=== PATIENT | male | born 1940 | race Caucasian/White ===

== ENCOUNTER 2018-11-12 06:12 | Observation (INO) ==
[~2018-11-12 06:12] MED LIST: MORPHINE SULFATE 15 MG TABLET.SA PO PRN; ROPIVACAINE HCL/PF 100 MG, EPINEPHrine 0.2 MG, KETOROLAC TROMETHAMINE 30 MG in NORMAL S... IJ PRN; TRANEXAMIC ACID 1,000 MG in NORMAL SALINE 100 ML IV PRN; ceFAZolin SODIUM 1 GM VIAL IV PRN
[2018-11-12] MEDS: RINGER'S SOLUTION,LACTATED 1,000 ML IV PRN ×3 (07:06→10:19)
--- NOTE | 2018-11-12 07:35 | ANES ---
Anesthesia Pre Procedure Eval Vitals/Labs: Last Vital Signs Temp 36.7 C 11/12/18 06:26 Pulse 65 11/12/18 06:26 Resp 18 11/12/18 06:26 BP 128/69 11/12/18 06:26 Pulse Ox 96 11/12/18 06:26 HOME MEDICATIONS Aspirin [Aspirin EC] 81 mg PO DAILY 06/08/15 [Last Taken 10/29/18] [place]-3 Fatty Acids [Fish Oil] 500 mg PO BID 06/08/15 [Last Taken Unknown] Saw Pool Xtr/Zinc Picolin [Gnp Saw Pool 80 mg Capsule] 2 ea PO BID 06/08/15 [Last Taken 11/11/18] gabapentin 100 mg capsule 200 mg PO BID #360 cap 04/30/18 [Last Taken 11/11/18] losartan 100 mg tablet 100 mg PO DAILY #90 tab 06/13/18 [Last Taken 11/12/18] Allergies/Adverse Reactions: Allergies Allergy/AdvReac Type Severity Reaction Status Date / Time pregabalin [From Lyrica] Allergy Mild Hives Verified 11/12/18 06:27 Tetracyclines Allergy Mild Hives Verified 11/12/18 06:27 Sulfa (Sulfonamide Allergy rash Verified 11/12/18 06:27 Antibiotics) - Planned Procedure Planned Procedure: Left Total Knee Arthroplasty Medication List Reviewed:: Yes Allergies Verified: Yes Medical History (Updated 11/11/18 @ 09:11 by Dat Morgan MD) CVA (cerebral vascular accident) Onset Date: ~12/2014 HTN (hypertension) Onset Date: Unknown Knee pain, bilateral Onset Date: Unknown Malignant melanoma Onset Date: ~09/2017 Rt hand - Removal by Dr. Aguilar Wrist pain Onset Date: Unknown Bilateral Surgical History (Updated 01/28/18 @ 08:58 by Chayito Pratt) History of carpal tunnel release 06/24/15 Endoscopic left - Dr. Wong Hx of appendectomy 1985 Hx of colonoscopy 2014 WNL Family History (Updated 01/28/18 @ 09:14 by Chayito Partt) Father Kidney disease Mother CVA (cerebral vascular accident) Hypertension Sister Alive and well 5 sisters Son Alive and well 2 sons - Family Anesthesia History Family History:: no untoward family reactions to anesthesia, no familial bleeding tendencies, no family history of clotting disorders, no family history of premature - Airway/Neck/Teeth Within Normal Limits:: Yes Teeth Condition: intact Mallampatti Score: 4 Thyromental (T-M) distance: > 6 cm Mandibulo Hyoid distance: > 3 cm - Respiratory Respiratory Physical: lungs clear Smoking Status: Never smoker Discussed smoking cessation including day of surgery: No Sleep Apnea currently treated: No Sleep Apnea by current assessment: No Discussed Risks/Treatment of REANNA: No - Cardiovascular Tolerate Activity: Fair Heart Sounds: S1 & S2, Regular - Anesthesia Assessment and Plan ASA Class: PS, III Anesthesia Type Plan: Block - Bilateral ultrasound guided TAP blocks for postop analgesia, Spinal
--- NOTE | 2018-11-12 10:15 | OR ---
Operative Report - Dictated Report Narrative: Date: 11/12/2018 Preoperative diagnosis: Left Knee degenerative joint disease. Postoperative diagnosis: Left Knee degenerative joint disease. Procedure: Left Total knee arthroplasty. Surgeon: Julien Wong M.D. Lead Shipper: Alejandro Mcrae PA-C (provided and essential set of skilled, educated hands that assisted with transfer, positioning, prepping, draping, manipulation, retraction, placement of jigs, injection, insertion of implants, irrigation, closure wounds, and dressings all of which could not be performed by the available surgical crew) Anesthesia: Spinal with regional block and local periarticular joint injection. Complications: None Specimens: Bone. Estimated blood loss: Minimal. Tourniquet time: 120 Minutes at 325 millimeters of mercury. Retained implants: Depuy Attune size 7 left lugged cemented posterior stabilized femoral component. Size 7 fixed-bearing cemented tibial platform. 7 by 5 millimeter posterior stabilized cross-linked tibial insert. 41 millimeter medialized patella button. Indications: Mr. Hill is a 78-year-old gentleman who has a long-standing left knee pain and arthrosis. This patient was followed in my clinic for period of time with significant complaints of left knee pain consistent with arthritic changes. He had failed conservative measures including, but not limited to, activity modification, passage of time, medications, and other conservative measures. Patient wished to proceed with surgical treatment. The risks, benefits, and alternatives were discussed in clinic. The risks of , blood clots, bleeding, infection, nerve/tendon blood vessel/ injury, malposition of components, intraoperative fracture, postoperative limited range of motion, persistent pain, failure of components, and need for additional procedures. Patient wished to proceed consent was obtained after answering all questions. Procedure: After marking the correct extremity on the floor, the patient was taken to the operating room. A timeout was performed. IV antibiotics consisting of Ancef were administered prior to the procedure. A regional followed by spinal anesthetic was induced by anesthesia, per my request, on the operative table with all bony prominences well-padded. Cortez catheter was placed, and a bump was placed under the operative side buttock. SCDs and JANET hose were utilized on the nonoperative leg. A well-padded tourniquet was applied to the operative thigh. The operative leg was then pre-scrubbed with alcohol, prepped, and draped in a standard sterile fashion. After exsanguinating the extremity with an Esmarch bandage, the tourniquet was inflated. After marking out the anterior knee for standard incision centered over the patella, the skin was incised and dissected down to the joint retinaculum. The joint retinaculum was marked out as well as the horizontal axis of the patella, and a standard medial parapatellar arthrotomy was then made. The most proximal aspect of the quadriceps tendon and the patella tendon insertion were protected from release. A partial synovectomy was performed as well as a resection of the infrapatellar fat pad. The distal femoral fat pad proximal to the trochlea was also resected using cautery. The soft tissues were elevated off the medial aspect of the proximal tibia using a Tse elevator ensuring that we did not transect the medial collateral ligament. Upon initial evaluation range of motion was approximately 10 degrees to 110 degrees of flexion. There were signs of advanced arthrosis in the medial and patellofemoral greater than lateral joint spaces. There were large marginal osteophytes which were removed with a rongeur. The knee was hyperflexed and the patella was tucked laterally. Protecting the surrounding soft tissues with Homans, an entry drill was placed down the femoral canal using Whitesides line for guidance into the entry point. The intramedullary femoral alignment liza was utilized in order to cut the distal femur in 5 degrees of valgus resecting 11 millimeters of bone. Next the distal femur was sized to a size 7. A posterior referencing guide was utilized to place the distal femoral cutting block in 3 degrees of external rotation. This was pinned into place. The rotation was confirmed both visually and based on anatomic landmarks. The 4 in 1 cutting jig of the appropriate size was utilized in order to make all bony cuts. The angle wing was used to ensure no notching. Retractors were utilized in order to protect surrounding soft tissues. This cut did not result in any excessive notching. We then cut the box centered over the distal femur. This allowed for resection of the anterior and posterior cruciate ligaments. I then turned my attention to the preparation of the tibia. Using an extra medullary tibial alignment liza, 5 millimeters of bone was resected off the medial articular surface. This was made perpendicular to the mechanical axis of the joint with the alignment liza centered over the ankle mortise. The alignment liza was checked and was noted to be parallel to the mechanical axis, centered over the medial one third of the tibial tubercle, paralleling the anterior surface of the tibia. We then turned our attention to the remaining meniscus and soft tissues. These were removed while protecting the surrounding ligaments and soft tissues. The marginal osteophytes off the anterior, posterior, medial, lateral aspects of the femur and tibia were removed. The tibia was sized out to a size 7. Next the tibia was drilled and punched in an externally rotated position. The tibial component was slightly lateralized and the excess bone around the medial posterior aspect of the tibia was resected in order to assist with obtaining full extension. Next the trial femur and a series of tibial inserts were utilized in order to allow for full extension and maximal flexion. It was found that a 5 millimeter insert gave the best range of motion and stability at multiple flexion points as well as at full extension there was less than 2 mm of gapping both medially and laterally. There is minimal anterior translation with the knee at 90 degrees of flexion and no signs of being able to dislocate the knee. The patella was then prepared. The initial thickness was 26 millimeters. This was reamed down to 16 millimeters parallel to the anterior surface of the patella. It was sized out to a size 41 medialized patella button. This was then drilled and trialed. Without any medial restraint the patella tracked appropriately and did not sublux or dislocate. At this point, it was felt these were the appropriate sized implants, and all trials were removed. The standard periarticular joint injection consisting of ropivacaine, Toradol, and epinephrine were injected into the periarticular joint tissues. The bony surfaces were thoroughly irrigated with a pulsatile-suction saline irrigation device. A bone plug from the prior resected anterior chamfer cut was placed into the drill hole at the distal femur. The bony surfaces were then dried in preparation for placement of the implants. The cement was vacuum mixed per the mosaic worker's instructions. The cement was placed on the dry bony surfaces and posterior aspect of the implants. The implants were impacted into place, removing all extruded cement. At this point anesthesia administered tranexamic acid per protocol intravenously. The knee was placed in extension with axial loading with the trial insert while the cement cured. Once the cement cured, all remaining extruded cement was removed. The knee was placed through a range of motion with the trial insert to ensure appropriate range of m otion and stability. Final range of motion was approximately 0 to 120 degrees. The knee was again thoroughly irrigated with pulsatile saline lavage. The final polyethylene insert was then impacted into place ensuring no retained soft tissues. The remaining periarticular joint injection was injected. A medium Hemovac drain was placed exiting superior laterally. The knee was then placed over a triangle and the arthrotomy was closed with interrupted #1 Vicryl after thoroughly irrigating the joint. The deep and subcutaneous tissues were closed with interrupted 0 and 3-0 Vicryl respectively. Skin was closed with a running subcutaneous 3-0 Monocryl and Prineo Dermabond dressing. 4 x 4's, Sof-Rol, and a full leg Jordan wrap were applied. All sponge, needle, blade, and instrument counts were correct prior to closing the wounds. Postoperative condition: The patient was awoken and transferred to the postanesthesia care unit in stable condition. Plan is to be admitted to the inpatient medical/surgical floor postoperatively for 24 hours of IV antibiotics, physical therapy, occupational therapy, and medical comanagement. Patient will be weightbearing as tolerated with range of motion as tolerated. DVT prophylaxis will be with SCDs, JANET hose, and pharmacological anticoagulation. Anticipated hospital stay is approximately 1-3 days.
[2018-11-12] MEDS ORDERED: diphenhydrAMINE HCL 50 MG/ML VIAL IV PRN (10:16)
[2018-11-12] MEDS ORDERED: ZOLPIDEM TARTRATE 5 MG TABLET PO PRN (10:16)
[2018-11-12] MEDS ORDERED: ONDANSETRON HCL/PF 2 MG/ML VIAL IV PRN (10:16)
[2018-11-12] MEDS ORDERED: ACETAMINOPHEN 500 MG TABLET PO PRN (10:16)
[2018-11-12] MEDS ORDERED: MAG HYDROX/ALUMINUM HYD/SIMETH 30 ML UDC PO PRN (10:16)
[2018-11-12] MEDS ORDERED: DEXTROSE 5%-LACTATED RINGERS 1,000 ML IV PRN (10:16)
[2018-11-12] MEDS ORDERED: MAGNESIUM HYDROXIDE 30 ML UDC PO PRN (10:16)
[2018-11-12] MEDS ORDERED: MORPHINE SULFATE 2 MG/ML DISP.SYRIN IV PRN (10:16)
--- NOTE | 2018-11-12 10:35 | ANES ---
Post Anesthesia Discharge - Transfer of Care Transfer of Care handoff given to nurse: Yes - Discharge from PACU Discharge from PACU when meets criteria: Yes - Discharge to ASU Discharge to ASU-no complications/pt stable: Yes
--- NOTE | 2018-11-12 10:39 | ANES ---
Anesthesia Procedure Note Procedure Note: ANESTHESIA PROCEDURE NOTE Date of Procedure: 11/12/2018. Time of procedure: 0740. Performed by: Norris Jolley CRNA Wheelchair Van Driver: None. Preprocedure diagnosis: Left knee degenerative joint disease. Post procedure diagnosis: Same. Procedure: Left ultrasound guided adductor canal block for postoperative analgesia. Indications: The patient is a 78-year-old male, requesting left ultrasound- guided abductor canal block for postoperative analgesia related to left total knee arthroplasty. Findings: See below. Details of the procedure: The tissue over the intended target site was cleansed with ChloraPrepand draped in a sterile fashion. 2 ml Lidocaine 1 % was infiltrated to the skin and subcutaneous tissue at the intended target site. Under sterile technique and ultrasound guidance a 18-gauge Tuohy needle was inserted through the left sartorius muscle to the saphenous nerve just anterior and medial to the superficial femoral artery and vein. 15 mL's of 0.5% bupivacaine was injected after negative aspiration for blood. Needle tip and spread of local anesthetic surrounding the saphenous nerve was observed throughout the injection with real time ultrasound visualization. The Tuohy needle was then removed intact. No complications were noted. The images were retained in the hospital medical database. EBL: Minimal. Fluids: N/A. Specimen: N/A. Post procedure condition: The patient tolerated the procedure well. No complications were noted. Thank you for this consultation. Norris Jolley CRNA
[2018-11-12] MEDS: KETOROLAC TROMETHAMINE 15 MG/ML VIAL IV SCH ×3 (11:11→22:44)
[2018-11-12] MEDS: ceFAZolin SODIUM 1 GM in DEXTROSE 5 % IN WATER 100 ML IV SCH ×4 (12:25→18:04)
--- NOTE | 2018-11-12 14:26 | ANES ---
Post Anesthesia Assessment - Vital Signs Vitals: Last Vital Signs Temp 36.2 C 11/12/18 10:50 Pulse 91 11/12/18 10:50 Resp 16 11/12/18 10:50 BP 139/64 11/12/18 10:50 Pulse Ox 95 11/12/18 10:50 Airway Patency: Normal - Mental Status Level Of Consciousness: Awake - Pain Level Pain Score: 0 - N/V Assessment Nausea/Vomiting Presence: None Dehydration:: No
[2018-11-12] MEDS: MORPHINE SULFATE 15 MG TABLET.SA PO SCH (21:45)
[2018-11-12] MEDS: OMEGA-3 FATTY ACIDS 1 CAP CAPSULE PO SCH (21:45)
[2018-11-12] MEDS: GABAPENTIN 100 MG CAPSULE PO SCH (21:45)
[2018-11-12] MEDS: SENNOSIDES/DOCUSATE SODIUM 1 TAB TABLET PO SCH (21:46)
[2018-11-13] MEDS: ceFAZolin SODIUM 1 GM in DEXTROSE 5 % IN WATER 100 ML IV SCH ×2 (00:42)
[2018-11-13] MEDS: oxyCODONE HCL/ACETAMINOPHEN 1 TAB TABLET PO PRN ×3 (04:00→14:50)
[2018-11-13] MEDS: KETOROLAC TROMETHAMINE 15 MG/ML VIAL IV SCH ×4 (04:02→23:29)
[2018-11-13 05:31] LABS: Anion Gap 8.7 mmol/L (6.8-13.8); BUN/Creatinine Ratio 10.1 (9.0-21.6); Calcium * 8.8 mg/dL (7.9-10.9); Carbon Dioxide 29.8 mmol/L (24-32.6); Estimated Creat Clear 41.2; Potassium 4.5 mmol/L (3.4-4.6)
[2018-11-13 05:35] LABS: Hematocrit 35.5 % (42.0-52.0); Hemoglobin 11.4 gm/dL (13.5-18.0); Mean Cell Volume 94.2 fl (78-100); Mean Corpuscular Hemoglobin 30.2 pg (27-31); Mean Corpuscular Hgb Conc 32.1 g/dl (32-36); Mean Platelet Volume 9.8 fl (8-11.3); Platelet Count 143 K/mm3 (150-450); Red Blood Count 3.77 M/mm3 (4.7-6.0); Red Cell Distribution Width 12.6 % (11.5-14.0); White Blood Count 6.4 K/mm3 (4.0-10.5)
[2018-11-13] MEDS: LOSARTAN POTASSIUM 50 MG TABLET PO SCH (08:41)
[2018-11-13] MEDS: MORPHINE SULFATE 15 MG TABLET.SA PO SCH ×2 (08:41→21:09)
[2018-11-13] MEDS: GABAPENTIN 100 MG CAPSULE PO SCH ×2 (08:41→21:10)
[2018-11-13] MEDS: OMEGA-3 FATTY ACIDS 1 CAP CAPSULE PO SCH ×2 (08:41→21:10)
[2018-11-13] MEDS: ENOXAPARIN SODIUM 40 MG/0.4 ML SYRG SC SCH (09:44)
--- NOTE | 2018-11-13 16:26 | PN ---
Subjective - Date and Time Seen Date: 11/13/18 Time: 08:00 Subjective Narrative: Subjective: Reports mild pain and difficulty sleeping last night. Was able to get up to the chair with therapy. Pain is well-controlled. Voiding without any complications. Tolerating by mouth intake. Denies any nausea or vomiting. Denies calf pain. Has some low back pain that responded to medications Physical exam: Alert and oriented to person, place and time Left lower extremity: Palpable dorsalis pedis pulse. Sensation grossly intact to light touch. Dressings clean and dry. Able to flex and extend ankle and toes. No excessive drainage. Calf and thigh are soft and nontender. Assessment: Postop day 1 status post left total knee arthroplasty. Plan: Due to the need for pain control, post-operative limited mobility, protection of the surgical site and joint, monitoring of the wound, and the management of chronic medical conditions, he requires continued care. Continue with physical and occupational therapy weightbearing as tolerated. Continue with anticoagulat ion. 24 hours postoperative prophylactic antibiotics. Pain control with goal to rely on oral medications. Continue bowel regimen. Will need 6 weeks with walker or assitive device to protect joint while ambulating during the recovery process. Discharge planning -he is being evaluated for treatment at the [facility] with skilled therapy in order to provide for additional therapy prior to returning home. Discontinue drain and Cortez catheter. Objective - Vitals Vitals: Last Vital Signs Temp 37.0 C 11/13/18 15:18 Pulse 80 11/13/18 15:18 Resp 16 11/13/18 15:18 BP 138/70 11/13/18 15:18 Pulse Ox 97 11/13/18 15:18 - Abnormal Lab Findings Abnormal Lab Findings: Abnormal Lab Results 11/13/18 11/13/18 Range/Units 05:05 05:05 RBC 3.77 L (4.7-6.0) M/mm3 Hgb 11.4 L (13.5-18.0) gm/dL Hct 35.5 L (42.0-52.0) % Plt Count 143 L (150-450) K/mm3 Creatinine 1.48 H (0.4-1.4) mg/dL Est GFR (Non-Af Amer) 49 L (60-130) mL/min Random Glucose 128 H (70-110) mg/dL Cauti Physician Documentation - Urinary Catheter Management Urethral (Cortez) Date of Insertion: 11/12/18 Time of Insertion: 08:10 Date of Removal: 11/13/18 Time of Removal: 03:30 Assessment/Plan - Problems/Diagnosis (1) Status post total left knee replacement Problem: Acute (2) Acute blood loss anemia Problem: Acute (3) Low back pain Problem: Chronic Qualifiers: Chronicity: chronic Back pain laterality: midline (4) Right bundle branch block (RBBB) Problem: Chronic (5) Degenerative disc disease, lumbar Problem: Chronic (6) Hypertension Problem: Chronic Qualifiers: (7) Hyperlipidemia Problem: Chronic
[2018-11-13] MEDS: SENNOSIDES/DOCUSATE SODIUM 1 TAB TABLET PO SCH (21:10)
[2018-11-14] MEDS: KETOROLAC TROMETHAMINE 15 MG/ML VIAL IV SCH (04:36)
[2018-11-14] MEDS: LOSARTAN POTASSIUM 50 MG TABLET PO SCH (08:32)
[2018-11-14] MEDS: ENOXAPARIN SODIUM 40 MG/0.4 ML SYRG SC SCH (08:32)
[2018-11-14] MEDS: GABAPENTIN 100 MG CAPSULE PO SCH (08:32)
[2018-11-14] MEDS: OMEGA-3 FATTY ACIDS 1 CAP CAPSULE PO SCH (08:32)
[2018-11-14] MEDS: MORPHINE SULFATE 15 MG TABLET.SA PO SCH (08:35)
--- NOTE | 2018-11-14 08:54 | DS ---
(1) Status post total left knee replacement Problem: Acute (2) Acute blood loss anemia Problem: Acute (3) Hyperlipidemia Problem: Chronic (4) Hypertension Problem: Chronic Qualifiers: Description of Stay: Mr. Landa was admitted to the floor after undergoing left total knee arthroplasty. Tolerated this well. Was admitted to the floor postoperatively for 24 hours of IV antibiotics, pain control, medical comanagement, and occupational and physical therapy. OT and PT were consulted to assist with activities of daily living and ambulation. Was made weightbearing as tolerated with range of motion as tolerated. Pain was initially controlled with IV regimen. This was transitioned to oral once tolerating a by mouth intake. Was resumed on home diet and medications. Had a Cortez catheter inserted and the operating room which was discontinued on postoperative day 1. A drain was placed intraoperatively into the knee which was discontinued on postoperative day 1. Lovenox SCD and JANET hose were utilized for DVT prophylaxis. Vital signs remained stable to the hospital course. Serial labs were obtained which showed a final hemoglobin of 11.4 grams. BMP was reviewed and was stable. Physical examination throughout the hospital course showed an extremity that had sensation that was intact to light touch, palpable pulses, a benign wound, motor intact to the toes, ankle, and knee. Knee range of motion was approximately 5 degrees to 60 degrees. Once an oral pain regimen was tolerated and physical therapy goals were met, it was felt that they were stable for discharge to home. Instructions: Continue with weightbearing as tolerated and range of motion as tolerated. It is OK to shower on the wound if it is not draining. If you note any drainage or for comfort you can cover with dry gauze and tape. Change every 2-3 days as needed. Continue with physical therapy. Resume home diet. Report any fever over 101.5 Fahrenheit, uncontrolled pain, increased drainage, foul odor of drainage, new or increased calf pain or shortness of breath, or any other significant complaints. A 325mg dialy aspirin will be started after finishing anticoagulation if not allergic. Continue with JANET hose on the operative extremity until instructed otherwise. No driving until instructed otherwise. Follow up in approximately 10-14 days. Procedures Performed: see notes below List Procedures: Left total knee arthroplasty Results and Findings: Lab Pending Results 11/13/18 05:05: WBC 6.4, RBC 3.77 L, Hgb 11.4 L, Hct 35.5 L, MCV 94.2, MCH 30.2, MCHC 32.1, RDW 12.6, Plt Count 143 L, MPV 9.8 11/13/18 05:05: Sodium 140, Plasma Sodium 140, Potassium 4.5, Chloride 106, Carbon Dioxide 29.8, Anion Gap 8.7, BUN 15, Creatinine 1.48 H, Est GFR (Non-Af Amer) 49 L, BUN/Creatinine Ratio 10.1, Random Glucose 128 H, Calcium 8.8 Discharge Location: [facility] Disposition: SNF Condition: Good Discharge Activity: Activity as tolerated, Weight bearing - With walker Discharge Diet: Low salt, Low fat/chol Referrals: Dat Morgan MD [Primary Care Provider] - Additional Patient Instructions (free text): Discharge to [facility] for PT and OT to evaluate and treat. Follow up Orthopedic appt. Dr Wong on December 04 at 10:30am. Follow up with Dr Morgan in office, care center to make the appt. Iceman as tolerated to knee when sedentary, at least 4 hours a day, no maximum time CPM 0-70 degrees flexion, progress as tolerated up to 110 degrees increasing 10 degrees daily as tolerate, use 3 times a day for 1-2 hours at a time, may use for longer periods or more often pending the patients comfort. Prescriptions (Any new or edited meds): Enoxaparin Sodium [Lovenox] 40 mg SC Q24H #7 disp.syrin Morphine Sulfate [Ms Contin] 15 mg PO Q12H #14 tablet.sa oxyCODONE HCL/ACETAMINOPHEN [Percocet 5 MG/325 MG] 2 tab PO Q4H PRN #60 tab PRN Reason: Moderate Pain (Pain Scale 4-6) Sennosides/Docusate Sodium [Senokot-S] 2 tab PO HS #30 tab Complete Home Medications List: Complete Home Medication List: Aspirin [Aspirin EC] 81 mg PO DAILY 06/08/15 [place]-3 Fatty Acids [Fish Oil] 500 mg PO BID 06/08/15 Saw Ely Xtr/Zinc Picolin [Gnp Saw [place]ly 80 mg Capsule] 2 ea PO BID 06/08/15 gabapentin 100 mg capsule 200 mg PO BID #360 cap 11/14/18 losartan 100 mg tablet 100 mg PO DAILY #90 tab 06/13/18 Enoxaparin Sodium [Lovenox] 40 mg SC Q24H #7 disp.syrin 11/14/18 Morphine Sulfate [Ms Contin] 15 mg PO Q12H #14 tablet.sa 11/14/18 Sennosides/Docusate Sodium [Senokot-S] 2 tab PO HS #30 tab 11/14/18 oxyCODONE HCL/ACETAMINOPHEN [Percocet 5 MG/325 MG] 2 tab PO Q4H PRN #60 tab 11/14/18
--- NOTE | 2018-11-14 12:13 | CONS ---
[facility] - General Date of Service: 11/14/18 Source: patient, family - History of Present Illness Initial Comments: 78-year-old male who I am asked to consult on for gross hematuria and urinary retention after knee surgery. Patient underwent a left knee replacement 2 days ago. Catheter was removed the next day. No reported troubles at first and he was able to urinate. However went into urinary retention overnight. He is now just dripping blood. States he has to pee but cannot. Only dripping a small amount. Bladder scan was 150 mL. He reports no prior urological surgery or medications. He does report progressive troubles urinating with urgency, incontinence and nocturia. Family history: no reported family history of urological problems Social history non-smoker Timing/Duration: 24 hours Severity: moderate Allergies/Adverse Reactions: Allergies pregabalin [From Lyrica] Allergy (Mild, Verified 11/12/18 13:13) Hives Tetracyclines Allergy (Mild, Verified 11/12/18 13:13) Hives Sulfa (Sulfonamide Antibiotics) Allergy (Verified 11/12/18 13:13) rash Home Medications: Home Medications Medication Instructions Recorded Last Taken Aspirin [Aspirin EC] 81 mg PO DAILY 06/08/15 10/29/18 [place]-3 Fatty Acids [Fish Oil] 500 mg PO BID 06/08/15 Unknown [place] Xtr/Zinc Picolin [Gnp 2 ea PO BID 06/08/15 11/11/18 [place] 80 mg Capsule] gabapentin 100 mg capsule 200 mg PO BID #360 cap 04/30/18 11/11/18 losartan 100 mg tablet 100 mg PO DAILY #90 tab 06/13/18 11/12/18 Enoxaparin Sodium [Lovenox] 40 mg SC Q24H #7 disp.syrin 11/14/18 Unknown Morphine Sulfate [Ms Contin] 15 mg PO Q12H #14 tablet.sa 11/14/18 Unknown Sennosides/Docusate Sodium 2 tab PO HS #30 tab 11/14/18 Unknown [Senokot-S] oxyCODONE HCL/ACETAMINOPHEN 2 tab PO Q4H PRN #60 tab 11/14/18 Unknown [Percocet 5 MG/325 MG] Procedures Release Median Nerve, Percutaneous Endoscopic Approach (06/24/15) Appendectomy in 1984 L knee replacement 2 days ago Medications - Medications Current Medications: Current Medications Acetaminophen (Tylenol) 1,000 mg PO Q6H PRN PRN Reason: Mild pain (pain scale 1-3) Stop: 12/12/18 10:17 Last Admin: 11/14/18 07:37 Dose: 1,000 mg Documented by: Enoxaparin Sodium (Lovenox) 40 mg SC Q24H [facility] Stop: 12/13/18 09:17 Last Admin: 11/14/18 08:32 Dose: 40 mg Documented by: Gabapentin (Neurontin) 200 mg PO BID [facility] Stop: 12/12/18 21:01 Last Admin: 11/14/18 08:32 Dose: 200 mg Documented by: Dextrose/Lactated Ringer's (Dextrose 5%-Lr) 1,000 mls @ 125 mls/hr IV .Q8H PRN PRN Reason: HYDRATION Stop: 12/12/18 10:17 Last Admin: 11/12/18 11:07 Dose: 125 mls/hr Documented by: Losartan Potassium (Cozaar) 100 mg PO DAILY [facility] Stop: 12/13/18 09:01 Last Admin: 11/14/18 08:32 Dose: 100 mg Documented by: Magnesium Hydroxide (Milk Of Magnesia) 30 ml PO DAILY PRN PRN Reason: Constipation Stop: 12/12/18 10:17 Last Admin: 11/13/18 11:43 Dose: 30 ml Documented by: Morphine Sulfate (Ms Contin) 15 mg PO Q12H [facility] Stop: 12/12/18 21:01 Last Admin: 11/14/18 08:35 Dose: 15 mg Documented by: Non-Formulary Medication ([place] Xtr/Zinc Picolin [Gnp [place] 80 Mg Capsule]) 2 ea PO BID [facility] Stop: 12/12/18 21:01 Last Admin: 11/14/18 08:32 Dose: Not Given Documented by: Iqatj-6-Bobk Ethyl Esters ([place]-3 1000 Mg) 1 cap PO BID [facility] Stop: 12/12/18 21:01 Last Admin: 11/14/18 08:32 Dose: 1 cap Documented by: Oxycodone/Acetaminophen (Percocet 5 Mg/325 Mg) 2 tab PO Q4H PRN PRN Reason: Moderate Pain (pain scale 4-6) Stop: 12/12/18 10:17 Last Admin: 11/13/18 14:50 Dose: 2 tab Documented by: Senna/Docusate Sodium (Senokot-S) 2 tab PO HS [facility] Stop: 12/12/18 21:01 Last Admin: 11/13/18 21:10 Dose: 2 tab Documented by: Zolpidem Tartrate (Ambien) 5 mg PO HS PRN PRN Reason: Insomnia Stop: 12/12/18 10:17 Last Admin: 11/13/18 21:09 Dose: 5 mg Documented by: Review of Systems - Review of Systems Generalized/Overall Review: Present: No Symptoms Reported EENTM: Present: No Symptoms Reported Respiratory: Present: No Symptoms Reported Cardiac: Present: No Symptoms Reported Abdominal: Present: No Symptoms Reported Genitourinary: Present: Retention, Hematuria Musculoskeletal: Present: Joint Pain Neurological: Present: No Symptoms Reported Skin: Present: No Symptoms Reported Endocrine: Present: No Symptoms Reported Physical Examination - Exam Vital Signs: Vital Signs - Last Taken Temp 98.6 F 11/14/18 10:03 Pulse 70 11/14/18 10:03 Resp 16 11/14/18 10:03 BP 143/66 11/14/18 10:03 Pulse Ox 97 11/14/18 10:03 O2 Oxygen Delivery Method Room Air Constitutional: Present: Alert, Oriented x3 ENT Exam: Present: normal ENT inspection Neck: Present: non-tender, full range of motion Respiratory: Present: normal breath sounds Cardiovascular/Chest: Present: regular rate, rhythm Abdomen: Present: soft, nontender /Rectal: Present: External genitalia normal, Other - dripping blood from penis while sitting on the toilet Extremity: Present: normal range of motion Skin Exam: Present: normal color, warm/dry Neurologic: Present: no motor/sensory deficits Appearance: Present: appropriate appearance Eye contact: Present: cooperative, good eye contact Thoughts: Present: normal thought pattern - Results and Findings: Narrative: Patient has urinary retention and gross hematuria following catheter removal yesterday. 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 I recommend 18 Vietnamese coud catheter placement and leave the catheter is indwelling. I will start him on Flomax and finasteride. I will see him back next week and see how he is doing and do a fill and pull assuming bleeding is stopped. Please call if he has troubles with placing catheter or catheter plugging. I would like him to discharge with both Flomax and finasteride
[2018-11-14] MEDS ORDERED: FINASTERIDE 5 MG TABLET PO SCH (12:15)
[2018-11-14 14:15] VITALS: BP 148/65
[2018-11-14] MEDS ORDERED: TAMSULOSIN HCL 0.4 MG CAP.SR.24H PO SCH (18:00)
== END 2018-11-14 14:00 ==
LOC: INTOOBSV 06:12 → MS 06:12 → EDSTATUS 08:00
PROVIDERS: ADMIT Orthopaedic Surgery; ATTEND Orthopaedic Surgery
CPT/HCPCS: 36415; 73560; 80048; 85027; 97110; 97116; 97161; 97165; 97535; G0378

== ENCOUNTER 2019-01-21 08:00 | Observation (INO) ==
[~2019-01-21 08:00] MED LIST changes: +VANCOMYCIN HCL 1 GM in DEXTROSE 5 % IN WATER 250 ML IV PRN
[2019-01-21] MEDS: RINGER'S SOLUTION,LACTATED 1,000 ML IV PRN ×2 (09:22→12:55)
--- NOTE | 2019-01-21 09:44 | ANES ---
Anesthesia Pre Procedure Eval Vitals/Labs: Last Vital Signs Temp 36.4 C 01/21/19 09:06 Pulse 66 01/21/19 09:06 Resp 18 01/21/19 09:06 BP 114/57 01/21/19 09:06 Pulse Ox 99 01/21/19 09:06 HOME MEDICATIONS Aspirin [Aspirin EC] 81 mg PO DAILY 06/08/15 [Last Taken 01/16/19] [place]-3 Fatty Acids [Fish Oil] 500 mg PO DAILY 06/08/15 [Last Taken 01/20/19] Acetaminophen [Tylenol] 500 mg PO TID PRN #30 tab 11/14/18 [Last Taken Unknown] Finasteride [Proscar] 5 mg PO DAILY #30 tab 11/14/18 [Last Taken 01/20/19] Tamsulosin HCl [Flomax] 0.4 mg PO DAILY #30 cap 11/14/18 [Last Taken 01/20/19] gabapentin 100 mg capsule 200 mg PO BID #360 cap 01/02/19 [Last Taken 01/20/19] losartan 100 mg tablet 100 mg PO DAILY #90 tab 01/02/19 [Last Taken 01/21/19] Allergies/Adverse Reactions: Allergies Allergy/AdvReac Type Severity Reaction Status Date / Time pregabalin [From Lyrica] Allergy Mild Hives Verified 01/19/19 11:35 Sulfa (Sulfonamide Allergy Mild rash Verified 01/21/19 09:10 Antibiotics) Tetracyclines Allergy Mild Hives Verified 01/19/19 11:35 - Planned Procedure Planned Procedure: Right Total Knee Arthroplasty Medication List Reviewed:: Yes Allergies Verified: Yes Medical History (Updated 01/21/19 @ 09:11 by Lou Robin, MICHELLE) Enlarged prostate CVA (cerebral vascular accident) Onset Date: ~12/2014 Cellulitis Onset Date: 11/2018 back HTN (hypertension) Onset Date: Unknown Knee pain, bilateral Onset Date: Unknown Malignant melanoma Onset Date: ~09/2017 Rt hand - Removal by Dr. Aguilar Wrist pain Onset Date: Unknown Bilateral Surgical History (Updated 12/04/18 @ 10:42 by Cody Vasques, MICHELLE) History of total left knee replacement Onset Date: 11/12/18 Dr. Wong History of carpal tunnel release 06/24/15 Endoscopic left - Dr. Wong Hx of appendectomy 1985 Hx of colonoscopy 2015 WNL Family History (Updated 01/28/18 @ 09:14 by Chayito Pratt) Father Kidney disease Mother CVA (cerebral vascular accident) Hypertension Sister Alive and well 5 sisters Son Alive and well 2 sons - Family Anesthesia History Family History:: no untoward family reactions to anesthesia, no familial bleeding tendencies, no family history of clotting disorders, no family history of premature - Airway/Neck/Teeth Within Normal Limits:: Yes Teeth Condition: intact Neck Exam: full range of motion Mallampatti Score: 3 Thyromental (T-M) distance: > 6 cm Mandibulo Hyoid distance: > 3 cm - Respiratory Respiratory Physical: lungs clear Smoking Status: Former smoker - quit 30+years Sleep Apnea currently treated: No Sleep Apnea by current assessment: No - Cardiovascular Cardiac History: CVA/stroke, hypertension Tolerate Activity: Fair Heart Sounds: S1 & S2, Regular - Anesthesia Assessment and Plan ASA Class: PS, III Anesthesia Type Plan: Block - adductor canal block for post op pain relief, Spinal
[2019-01-21] MEDS ORDERED: ONDANSETRON HCL/PF 2 MG/ML VIAL IV PRN (12:42)
[2019-01-21] MEDS ORDERED: ACETAMINOPHEN 500 MG TABLET PO PRN (12:42)
[2019-01-21] MEDS ORDERED: diphenhydrAMINE HCL 50 MG/ML VIAL IV PRN (12:42)
[2019-01-21] MEDS ORDERED: DEXTROSE 5%-LACTATED RINGERS 1,000 ML IV PRN (12:42)
[2019-01-21] MEDS ORDERED: MAGNESIUM HYDROXIDE 30 ML UDC PO PRN (12:42)
[2019-01-21] MEDS ORDERED: MAG HYDROX/ALUMINUM HYD/SIMETH 30 ML UDC PO PRN (12:42)
[2019-01-21] MEDS ORDERED: ZOLPIDEM TARTRATE 5 MG TABLET PO PRN (12:42)
[2019-01-21] MEDS ORDERED: MORPHINE SULFATE 4 MG/ML SYRG IV PRN (12:42)
--- NOTE | 2019-01-21 12:50 | OR ---
Operative Report - Dictated Report Narrative: Date: 01/21/2019 Preoperative diagnosis: Right knee degenerative joint disease. Postoperative diagnosis: Right knee degenerative joint disease. Procedure: Right total knee arthroplasty. Surgeon: Julien Wong M.D. Clerical Administrator: Alejandro Mcrae PA-C (provided and essential set of skilled, educated hands that assisted with transfer, positioning, prepping, draping, manipulation, retraction, placement of jigs, injection, insertion of implants, irrigation, closure wounds, and dressings all of which could not be performed by the available surgical crew) Anesthesia: Spinal with regional block and local periarticular joint injection. Complications: None Specimens: Bone. Estimated blood loss: Minimal. Tourniquet time: 105 Minutes at 325 millimeters of mercury. Retained implants: Depuy Attune size 8 right lugged cemented posterior stabilized femoral component. Size 8 fixed-bearing cemented tibial platform. 8 by 5 millimeter posterior stabilized cross-linked tibial insert. 41 millimeter medialized patella button. Indications: Mr. Hill is a 78-year-old gentleman who has had long-standing right knee pain and arthrosis. This patient was followed in my clinic for period of time with significant complaints of right knee pain consistent with arthritic changes. He had failed conservative measures including, but not limited to, activity modification, passage of time, medications, and other conservative measures. Patient wished to proceed with surgical treatment. The risks, benefits, and alternatives were discussed in clinic. The risks of , blood clots, bleeding, infection, nerve/tendon blood vessel/ injury, malposition of components, intraoperative fracture, postoperative limited range of motion, persistent pain, failure of components, and need for additional procedures. Patient wished to proceed consent was obtained after answering all questions. Procedure: After marking the correct extremity on the floor, the patient was taken to the operating room. A timeout was performed. IV antibiotics consisting of Ancef were administered prior to the procedure. A regional followed by spinal anesthetic was induced by anesthesia, per my request, on the operative table with all bony prominences well-padded. Cortez catheter was placed, and a bump was placed under the operative side buttock. SCDs and JANET hose were utilized on the nonoperative leg. A well-padded tourniquet was applied to the operative thigh. The operative leg was then pre-scrubbed with alcohol, prepped, and draped in a standard sterile fashion. After exsanguinating the extremity with an Esmarch bandage, the tourniquet was inflated. After marking out the anterior knee for standard incision centered over the patella, the skin was incised and dissected down to the joint retinaculum. The joint retinaculum was marked out as well as the horizontal axis of the patella, and a standard medial parapatellar arthrotomy was then made. The most proximal aspect of the quadriceps tendon and the patella tendon insertion were protected from release. A partial synovectomy was performed as well as a resection of the infrapatellar fat pad. The distal femoral fat pad proximal to the trochlea was also resected using cautery. The soft tissues were elevated off the medial aspect of the proximal tibia using a Tse elevator ensuring that we did not transect the medial collateral ligament. Upon initial evaluation range of motion was approximately 10 degrees to 100 degrees of flexion. There were signs of advanced arthrosis in the medial, lateral, and patellofemoral joint spaces. There were large marginal osteophytes which were removed with a rongeur. The knee was hyperflexed and the patella was tucked laterally. Protecting the surrounding soft tissues with Homans, an entry drill was placed down the femoral canal using Whitesides line for guidance into the entry point. The intramedullary femoral alignment liza was utilized in order to cut the distal femur in 5 degrees of valgus resecting 11 millimeters of bone. Next the distal femur was sized to a size 8. A posterior referencing guide was utilized to place the distal femoral cutting block in 3 degrees of external rotation. This was pinned into place. The rotation was confirmed both visually and based on anatomic landmarks. The 4 in 1 cutting jig of the appropriate size was utilized in order to make all bony cuts. The angle wing was used to ensure no notching. Retractors were utilized in order to protect surrounding soft tissues. This cut did not result in any excessive notching. We then cut the box centered over the distal femur. This allowed for resection of the anterior and posterior cruciate ligaments. I then turned my attention to the preparation of the tibia. Using an extra medullary tibial alignment liza, 5 millimeters of bone was resected off the medial articular surface. This was made perpendicular to the mechanical axis of the joint with the alignment liza centered over the ankle mortise. The alignment liza was checked and was noted to be parallel to the mechanical axis, centered over the medial one third of the tibial tubercle, paralleling the anterior surface of the tibia. We then turned our attention to the remaining meniscus and soft tissues. These were removed while protecting the surrounding ligaments and soft tissues. The marginal osteophytes off the anterior, posterior, medial, lateral aspects of the femur and tibia were removed. The tibia was sized out to a size 8. Next the tibia was drilled and punched in an externally rotated position. Next the trial femur and a series of tibial inserts were utilized in order to allow for full extension and maximal flexion. It was found that a 5 millimeter insert gave the best range of motion and stability at multiple flexion points as well as at full extension there was less than 2 mm of gapping both medially and laterally. There is minimal anterior translation with the knee at 90 degrees of flexion and no signs of being able to dislocate the knee. The patella was then prepared. The initial thickness was 27 millimeters. This was reamed down to 17 millimeters parallel to the anterior surface of the patella. It was sized out to a size 41 medialized patella button. This was then drilled and trialed. Without any medial restraint the patella tracked appropriately and did not sublux or dislocate. At this point, it was felt these were the appropriate sized implants, and all trials were removed. The standard periarticular joint injection consisting of ropivacaine, Toradol, and epinephrine were injected into the periarticular joint tissues. The bony surfaces were thoroughly irrigated with a pulsatile-suction saline irrigation device. A bone plug from the prior resected anterior chamfer cut was placed into the drill hole at the distal femur. The bony surfaces were then dried in preparation for placement of the implants. The cement was vacuum mixed per the radio frequency design engineer's instructions. The cement was placed on the dry bony surfaces and posterior aspect of the implants. The implants were impacted into place, removing all extruded cement. At this point anesthesia administered tranexamic acid per protocol intravenously. The knee was placed in extension with axial loading with the trial insert while the cement cured. Once the cement cured, all remaining extruded cement was removed. The knee was placed through a range of motion with the trial insert to ensure appropriate range of motion and stability. Final range of motion was approximately 0 to 120 degrees. The knee was again thoroughly irrigated with pulsatile saline lavage. The final polyethylene insert was then impacted into place ensuring no retained soft tissues. The remaining periarticular joint injection was injected. A medium Hemovac drain was placed exiting superior laterally. The knee was then placed over a triangle and the arthrotomy was closed with interrupted #1 Vicryl after thoroughly irrigating the joint. The deep and subcutaneous tissues were closed with interrupted 0 and 3-0 Vicryl respectively. Skin was closed with a running subcutaneous 3-0 Monocryl and Prineo Dermabond dressing. 4 x 4's, Sof-Rol, and a full leg Jordan wrap were applied. All sponge, needle, blade, and instrument counts were correct prior to closing the wounds. Postoperative condition: The patient was awoken and transferred to the postanesthesia care unit in stable condition. Plan is to be admitted to the inpatient medical/surgical floor postoperatively for 24 hours of IV antibiotics, physical therapy, occupational therapy, and medical comanagement. Patient will be weightbearing as tolerated with range of motion as tolerated. DVT prophylaxis will be with SCDs, JANET hose, and pharmacological anticoagulation. Anticipated hospital stay is approximately 1-3 days.
--- NOTE | 2019-01-21 12:56 | ANES ---
Post Anesthesia Discharge - Transfer of Care Transfer of Care handoff given to nurse: Yes - Discharge from PACU Discharge from PACU when meets criteria: Yes - Comfortable in OR#2
--- NOTE | 2019-01-21 12:59 | ANES ---
Anesthesia Procedure Note Procedure Note: ANESTHESIA PROCEDURE NOTE Date of Procedure: [01/21/2019 Time of procedure: 1025. Performed by: TY Varma CRNA, MSN Cake Icer: Stella Boss RN. Preprocedure diagnosis: Post right total knee arthroplasty. Post procedure diagnosis: Same. Procedure: Right adductor Canal Block. Indications: Post right total knee arthroplasty pain relief. Findings: See below. Details of the procedure: The patient was brought to OR to and placed in supine position. The patient's right femoral area to the knee was prepped with chlorhexidine and using ultrasound guidance the right femoral artery and nerve was identified and then followed to the level of the adductor canal. Lidocaine 1% was infiltrated to the skin of the intended injection site. Under ultrasound guidance the saphenous nerve was approached with visualization of a 4 inch shielded block needle. Once saphenous nerve was identified with proximity to the needle tip, the saphenous nerve was surrounded with 20 mL bupivacaine 0.25% with 1-200,000 epinephrine. Please see radiology/ultrasound report for details and retained images of the procedure. EBL: 0 Fluids: N/A. Specimen: N/A. Post procedure condition: The patient tolerated the procedure well. No complications were noted. Thank you for this consultation. Manny Limon CRNA, ARNP, MSN
--- NOTE | 2019-01-21 13:22 | ANES ---
Post Anesthesia Assessment - Vital Signs Vitals: Last Vital Signs Temp 36.5 C 01/21/19 13:14 Pulse 77 01/21/19 13:14 Resp 16 01/21/19 13:14 BP 112/63 01/21/19 13:14 Pulse Ox 98 01/21/19 13:14 Airway Patency: Normal - Mental Status Level Of Consciousness: Awake, Alert, Appropriate - Pain Level Pain Score: 0 - N/V Assessment Nausea/Vomiting Presence: None Dehydration:: No
[2019-01-21] MEDS: KETOROLAC TROMETHAMINE 15 MG/ML VIAL IV SCH ×2 (13:58→19:34)
[2019-01-21] MEDS ORDERED: TAMSULOSIN HCL 0.4 MG CAP.SR.24H PO SCH (19:00)
[2019-01-21] MEDS ORDERED: SENNOSIDES/DOCUSATE SODIUM 1 TAB TABLET PO SCH (21:00)
[2019-01-21] MEDS: GABAPENTIN 100 MG CAPSULE PO SCH (21:05)
[2019-01-21] MEDS: MORPHINE SULFATE 15 MG TABLET.SA PO SCH (21:05)
[2019-01-21] MEDS ORDERED: VANCOMYCIN HCL 1 GM in DEXTROSE 5 % IN WATER 250 ML IV SCH ×2 (22:42)
[2019-01-22] MEDS: oxyCODONE HCL/ACETAMINOPHEN 1 TAB TABLET PO PRN ×2 (00:17→12:38)
[2019-01-22] MEDS: KETOROLAC TROMETHAMINE 15 MG/ML VIAL IV SCH ×3 (00:18→12:39)
[2019-01-22 05:29] LABS: Anion Gap 8.4 mmol/L (6.8-13.8); BUN/Creatinine Ratio 11.4 (9.0-21.6); Calcium * 8.3 mg/dL (7.9-10.9); Carbon Dioxide 29.7 mmol/L (24-32.6); Estimated Creat Clear 46.1; Potassium 4.1 mmol/L (3.4-4.6)
[2019-01-22 05:50] LABS: Hemoglobin 10.1 gm/dL (13.5-18.0); Mean Cell Volume 93.6 fl (78-100); Mean Corpuscular Hemoglobin 29.5 pg (27-31); Mean Corpuscular Hgb Conc 31.6 g/dl (32-36); Mean Platelet Volume 9.6 fl (8-11.3); Platelet Count 156 K/mm3 (150-450); Red Blood Count 3.42 M/mm3 (4.7-6.0); Red Cell Distribution Width 12.7 % (11.5-14.0); White Blood Count 6.7 K/mm3 (4.0-10.5)
[2019-01-22] MEDS: GABAPENTIN 100 MG CAPSULE PO SCH (08:30)
[2019-01-22] MEDS: MORPHINE SULFATE 15 MG TABLET.SA PO SCH (08:30)
[2019-01-22] MEDS ORDERED: OMEGA-3 FATTY ACIDS 1 CAP CAPSULE PO SCH (09:00)
[2019-01-22] MEDS ORDERED: FINASTERIDE 5 MG TABLET PO SCH (09:00)
[2019-01-22] MEDS ORDERED: LOSARTAN POTASSIUM 50 MG TABLET PO SCH (09:00)
[2019-01-22] MEDS ORDERED: ENOXAPARIN SODIUM 40 MG/0.4 ML SYRG SC SCH (11:42)
--- NOTE | 2019-01-22 11:59 | DS ---
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 Hill was admitted to the floor after undergoing right total knee arthroplasty. Tolerated this well. Was admitted to the floor postoperatively for 24 hours of IV antibiotics, pain control, medical comanagement, and occupational and physical therapy. OT and PT were consulted to assist with activities of daily living and ambulation. Was made weightbearing as tolerated with range of motion as tolerated. Pain was initially controlled with IV regimen. This was transitioned to oral once tolerating a by mouth intake. Was resumed on home diet and medications. Had a Cortez catheter inserted and the operating room which was discontinued on postoperative day 1. A drain was placed intraoperatively into the knee which was discontinued on postoperative day 1. Lovenox SCD and JANET hose were utilized for DVT prophylaxis. Vital signs remained stable to the hospital course. Serial labs were obtained which showed a final hemoglobin of 10.1 grams. BMP was reviewed and was stable. Physical examination throughout the hospital course showed an extremity that had sensation that was intact to light touch, palpable pulses, a benign wound, motor intact to the toes, ankle, and knee. Knee range of motion was approximately 5 degrees to 70 degrees. Once an oral pain regimen was tolerated and physical therapy goals were met, it was felt that they were stable for discharge to home. Instructions: Continue with weightbearing as tolerated and range of motion as tolerated. It is OK to shower on the wound if it is not draining. If you note any drainage or for comfort you can cover with dry gauze and tape. Change every 2-3 days as needed. Continue with physical therapy. Resume home diet. Report any fever over 101.5 Fahrenheit, uncontrolled pain, increased drainage, foul odor of drainage, new or increased calf pain or shortness of breath, or any other significant complaints. A 325mg dialy aspirin will be started after finishing anticoagulation if not allergic. Continue with JANET hose on the operative extremity until instructed otherwise. No driving until instructed otherwise. Follow up in approximately 10-14 days. Procedures Performed: see notes below List Procedures: Right total knee arthroplasty Results and Findings: Lab Pending Results 01/22/19 05:20: WBC 6.7, RBC 3.42 L, Hgb 10.1 L, Hct 32.0 L, MCV 93.6, MCH 29.5, MCHC 31.6 L, RDW 12.7, Plt Count 156, MPV 9.6 01/22/19 05:20: Sodium 137, Plasma Sodium 137, Potassium 4.1, Chloride 103, Carbon Dioxide 29.7, Anion Gap 8.4, BUN 15, Creatinine 1.32, Est GFR (Non-Af Amer) 55 L, BUN/Creatinine Ratio 11.4, Random Glucose 97, Calcium 8.3 Discharge Location: Home Disposition: Home self-care Condition: Good Discharge Activity: Activity as tolerated, Weight bearing, Other - With wheeled walker Discharge Diet: Low salt, Low fat/chol Referrals: Julien Wong MD [Staff Physician] - 02/10/19 10:00 am Problem Oriented Discharge Instructions to Patient/Family: Total Knee Replacement, Care After, [id number] Additional Patient Instructions (free text): Physical therapy scheduled at [facility] on 01/26/19 at 10:00am.Follow up scheduled in the office with Dr. Wong on 02/10/19 at 10:00am. Prescriptions (Any new or edited meds): Enoxaparin Sodium [Lovenox] 40 mg SC Q24H #7 disp.syrin Morphine Sulfate [Ms Contin] 15 mg PO Q12H #14 tablet.sa oxyCODONE HCL/ACETAMINOPHEN [Percocet 5 MG/325 MG] 2 tab PO Q4H PRN #60 tablet PRN Reason: Moderate Pain (Pain Scale 4-6) Sennosides/Docusate Sodium [Senokot-S] 2 tab PO HS #30 tab Complete Home Medications List: Complete Home Medication List: Aspirin [Aspirin EC] 81 mg PO DAILY 06/08/15 [place]-3 Fatty Acids [Fish Oil] 500 mg PO DAILY 06/08/15 Finasteride [Proscar] 5 mg PO DAILY #30 tab 11/14/18 Tamsulosin HCl [Flomax] 0.4 mg PO DAILY #30 cap 11/14/18 gabapentin 100 mg capsule 200 mg PO BID #360 cap 01/02/19 losartan 100 mg tablet 100 mg PO DAILY #90 tab 01/02/19 Enoxaparin Sodium [Lovenox] 40 mg SC Q24H #7 disp.syrin 01/22/19 Morphine Sulfate [Ms Contin] 15 mg PO Q12H #14 tablet.sa 01/22/19 Sennosides/Docusate Sodium [Senokot-S] 2 tab PO HS #30 tab 01/22/19 oxyCODONE HCL/ACETAMINOPHEN [Percocet 5 MG/325 MG] 2 tab PO Q4H PRN #60 tablet 01/22/19 Amb Orders for Discharge: PT Evaluation and Treatment* Facility: [facility], Location: Rehabilitation Services
[2019-01-22 13:44] VITALS: BP 113/65
== END 2019-01-22 13:42 | disposition home or self-care (01) ==
LOC: MS → EDSTATUS 10:45
PROVIDERS: ADMIT Orthopaedic Surgery; ATTEND Orthopaedic Surgery
DX: I45.10 Unspecified right bundle-branch block; M54.5 Low back pain; D62 Acute posthemorrhagic anemia; I10 Essential (primary) hypertension; M51.36 Other intervertebral disc degeneration, lumbar region; N40.1 Benign prostatic hyperplasia with lower urinary tract symptoms; Z96.651 Presence of right artificial knee joint; E78.5 Hyperlipidemia, unspecified
CPT/HCPCS: 36415; 73560; 80048; 85027; 97110; 97116; 97161; 97165; 97530; G0378

== ENCOUNTER 2019-06-16 09:15 | Observation (INO) ==
[2019-06-16 09:44] LABS: Hematocrit 36.1 % (42.0-52.0); Hemoglobin 11.6 gm/dL (13.5-18.0); Mean Cell Volume 92.3 fl (78-100); Mean Corpuscular Hemoglobin 29.7 pg (27-31); Mean Corpuscular Hgb Conc 32.1 g/dl (32-36); Mean Platelet Volume 9.1 fl (8-11.3); Neutrophil # 4.4 K/mm3 (1.3-6.0); Neutrophil % 71.3 % (42-75.0); Platelet Count 184 K/mm3 (150-450); Red Blood Count 3.91 M/mm3 (4.7-6.0); Red Cell Distribution Width 13.2 % (11.5-14.0); White Blood Count 6.2 K/mm3 (4.0-10.5)
--- NOTE | 2019-06-16 09:52 | ERNOTE ---
Trauma/Assault HPI - General Stated Complaint: PASSED OUT Time Seen by Provider: 06/16/19 09:20 Source: patient, family, EMS Exam Limitations: no limitations - Immun/Allergies/Home Medications Immunizations: IMMUNIZATION HX Immunizations Up to Date No History of Influenza Vaccine No Hx Pneumococcal Vaccination Yes Allergies/Adverse Reactions: Allergies adhesive tape Allergy (Mild, Verified 04/09/19 13:28) rash pregabalin [From Lyrica] Allergy (Mild, Verified 04/09/19 13:28) Hives Sulfa (Sulfonamide Antibiotics) Allergy (Mild, Verified 04/09/19 13:28) rash Tetracyclines Allergy (Mild, Verified 04/09/19 13:28) Hives Home Medications: HOME MEDICATIONS Aspirin [Aspirin EC] 81 mg PO DAILY 06/08/15 [Last Taken 01/16/19] [place]-3 Fatty Acids [Fish Oil] 500 mg PO DAILY 06/08/15 [Last Taken 01/20/19] Finasteride [Proscar] 5 mg PO DAILY #30 tab 11/14/18 [Last Taken 01/20/19] Tamsulosin HCl [Flomax] 0.4 mg PO DAILY #30 cap 11/14/18 [Last Taken 01/20/19] gabapentin 100 mg capsule 200 mg PO BID #360 cap 01/02/19 [Last Taken 01/20/19] losartan 100 mg tablet 100 mg PO DAILY #90 tab 01/02/19 [Last Taken 01/21/19] acetaminophen 500 mg tablet 1,000 mg PO .COMPLEX PRN tab 02/10/19 [Last Taken Unknown] - History of Present Illness Location Occurred: Reports: other - grocery store Pain Location: Reports: none Severity: severe Modifying Factors - (Worsens): Denies: cold therapy Loss of Consciousness: Reports: brief (seconds), unsure Associated Symptoms - Trauma: Reports: denies symptoms Review of Systems - Review of Systems Constitutional: Present: See HPI EYE: Present: no symptoms reported ENT: Present: no symptoms reported Respiratory: Present: no symptoms reported Cardiology: Present: no symptoms reported Gastrointestinal/Abdominal: Present: no symptoms reported Genitourinary: Present: no symptoms reported Musculoskeletal: Present: no symptoms reported Skin: Present: no symptoms reported Neurological: Present: See HPI Endocrine: Present: no symptoms reported Hematologic/Lymphatic: Present: no symptoms reported Psych: Present: no symptoms reported Medical History (Last Updated 04/09/19 @ 13:25 by Stephanie Mary CMA) CVA (cerebral vascular accident) Onset Date: ~12/2014 Cellulitis Onset Date: 11/2018 back Enlarged prostate Onset Date: Unknown Knee pain, bilateral Onset Date: Unknown Malignant melanoma Onset Date: ~09/2017 Rt hand - Removal by Dr. Aguilar Wrist pain Onset Date: Unknown Bilateral HTN (hypertension) Onset Date: Unknown Surgical History: Surgical History (Last Updated 04/09/19 @ 13:25 by Stephanie Mary CMA) Status post total right knee replacement (Resolved) Onset Date: ~01/21/19 01/21/19 Judith History of carpal tunnel release Onset Date: Unknown 06/24/15 Endoscopic left - Dr. Wong History of total left knee replacement Onset Date: 11/12/18 Dr. Wong Hx of appendectomy Onset Date: Unknown 1984 Hx of colonoscopy Onset Date: Unknown 2014 WNL Family History: Family History (Last Reviewed 04/09/19 @ 13:24 by Stephanie Mary CMA) Father Kidney disease Mother CVA (cerebral vascular accident) Hypertension Sister Alive and well 5 sisters Son Alive and well 2 sons Social History: (Last Updated 04/09/19 @ 14:15 by Julien Wong MD) Social History: Marital status: household members: spouse current occupational status: employed current occupation: insurance job titles Highest education level completed: some college, no degree Service: No Tobacco: Smoking Status: Former smoker Smoking End Date: 06/17/88 Alcohol: alcohol intake: current alcohol intake frequency: holiday/special occasion details: Some day rare Substance Use: substance use type: does not use Dietary Habits: caffeine: Yes caffeine comment: Current every day 2 C coffee Physical Exam - Physical Exam General Appearance: Present: wd/wn, alert, no apparent distress Head Exam: Present: normal inspection, no evidence of injury Eye Exam: Normal inspection: bilateral, PERRL: bilateral Ears, Nose, Throat: Present: normal ENT inspection, H, normal pharynx Neck: Present: normal inspection, nontender Respiratory: Present: no respiratory distress, normal breath sounds, no accessory muscle use, chest nontender, lungs clear Cardiovascular/Chest: Present: regular rate, rhythm, no murmur, normal peripheral pulses Gastrointestinal/Abdominal: Present: normal bowel sounds, nontender, nondistended, soft, no organomegaly Rectal Exam: Present: deferred Male Genitals Exam: Present: deferred Back Exam: Present: normal inspection, normal range of motion Extremity Exam: Present: normal inspection, non-tender, no edema, normal range of motion Neurological Exam: Present: alert, oriented, normal mood/affect Skin Exam: Present: normal color, warm/dry Lymphatic Exam: Present: no adenopathy Progress - Results and Orders Patient's Lab Results:: I have reviewed the patient's lab results. - Vital Signs Patient's Vital Signs:: I have reviewed the patient's vital signs. Vital Signs: Vital Signs 06/16/19 09:15 06/16/19 09:20 Temperature 36.7 C Pulse Rate 95 87 Respiratory Rate 18 14 Blood Pressure 161/68 H 144/73 O2 Sat by Pulse Oximetry 98 99 - EKG EKG #1 EKG: RBBB EKG read: Reviewed by me - CT/Ultrasound CT/Ultrasound Narrative: CT the head was reviewed by me - Progress/Reassessment Chief Complaint: Fall Plan - Plan Plan: Dr. Morgan has agreed to admit the patient. He states he will do both an echocardiogram and an MRI of the brain. Departure Clinical Impression: Syncope and collapse - Departure Disposition: Still a patient Condition: Fair Referrals: Dat Morgan MD [Primary Care Provider] - Critical Care Time - Critical Care Critical Time Spent:: No Total time (mins) Spent:: 0
[2019-06-16 10:03] LABS: ALT 25 U/L (19-67); AST 18 U/L (0-48); Albumin * 3.4 gm/dl (3.4-5.0); Alkaline Phosphatase * 69 U/L (50-170); Anion Gap 9.9 mmol/L (6.8-13.8); BUN/Creatinine Ratio 16.7 (9.0-21.6); Bilirubin, Total 0.5 mg/dL (0.0-1.1); Blood Urea Nitrogen 23 mg/dL (6-23); Ca. Corrected For Albumin 8.7 mg/dL (8.4-10.2); Calcium * 8.5 mg/dL (7.9-10.9); Carbon Dioxide 29.5 mmol/L (24-32.6); Chloride 103 mmol/L (97-106); Glucose * 105 mg/dL (70-110); Magnesium 1.8 mg/dL (1.2-2.8); Potassium 4.4 mmol/L (3.4-4.6); Sodium 138 mmol/L (132-142); Total Protein 6.8 gm/dL (6.2-8.2)
[2019-06-16 10:05] LABS: Troponin I Less than 0.017 ng/mL (0.00-0.10)
--- NOTE | 2019-06-16 12:12 | HP ---
Chief Complaint - Chief Complaint Date of Service: 06/16/19 Time of Service: 12:01 Chief Complaint: syncope History of Present Illness: Duke Hill is 79-year-old white male with past medical history of CVA in 2014, hypertension, benign prostatic hypertrophy, who was admitted on 06/16/2019 because of multiple syncopal attacks. The patient was in a convenience store sitting on a crate of pop cans and complained of neck pain when he turned his head leigh ann look into the parking lot. He stood up to pay his bill and felt a little bit dizzy. He then suddenly passed out and hit the floor. He denied any CP/SOB/palpitation/diaphoresis. The son was with him and he described the patient woke up and did not seem to be confused. He sat him back on on the crate of pop cans when they noticed that he would have episodes of passing out for about 10 seconds every 5 minutes 5 times. The last attack they noticed some twitching of his right upper extremity and rolling of his eyeballs. They did not notice any drooling of saliva out from his mouth or any soiling of his undergarments. They called EMS and he was brought to our emergency room were head CT scan done showed no acute intracranial process. His laboratory work-up were basically within normal limits except for a mild anemia. His EKG showed normal sinus rhythm with heart rate of 79, first-degree AV block and a right bundle branch block. As per ED physician he was not orthostatic in the ER. He was then admitted for observation and further evaluation and treatment. Medical History (Last Reviewed 06/16/19 @ 12:59 by Yonatan Ibarra RN) CVA (cerebral vascular accident) Onset Date: ~12/2014 Cellulitis Onset Date: 11/2018 back Enlarged prostate Onset Date: Unknown Knee pain, bilateral Onset Date: Unknown Malignant melanoma Onset Date: ~09/2017 Rt hand - Removal by Dr. Aguilar Wrist pain Onset Date: Unknown Bilateral HTN (hypertension) Onset Date: Unknown Surgical History: Surgical History (Last Reviewed 06/16/19 @ 12:59 by Yonatan Ibarra RN) Status post total right knee replacement (Resolved) Onset Date: ~01/21/19 01/21/19 Judith History of carpal tunnel release Onset Date: Unknown 06/24/15 Endoscopic left - Dr. Wong History of total left knee replacement Onset Date: 11/12/18 Dr. Wong Hx of appendectomy Onset Date: Unknown 1984 Hx of colonoscopy Onset Date: Unknown 2014 WNL Family History: Family History (Last Reviewed 06/16/19 @ 12:59 by Yonatan Ibarra RN) Father Kidney disease Mother CVA (cerebral vascular accident) Hypertension Sister Alive and well 5 sisters Son Alive and well 2 sons Social History: (Last Reviewed 06/16/19 @ 12:59 by Yonatan Ibarra RN) Social History: Marital status: household members: spouse current occupational status: employed current occupation: insurance claims examiner Highest education level completed: some college, no degree Service: No Tobacco: Smoking Status: Former smoker Smoking End Date: 06/17/88 Alcohol: alcohol intake: current alcohol intake frequency: holiday/special occasion details: Some day rare Substance Use: substance use type: does not use Dietary Habits: caffeine: Yes caffeine comment: Current every day 2 C coffee Review Of Systems (GEN) - Review of Systems Generalized/Overall Review: Absent: Chills, Fever EENTM: Absent: Blurred Vision Respiratory: Absent: Cough, Shortness of Breath, Orthopnea Cardiac: Absent: Chest Pain, Edema, Palpitations Abdominal: Absent: Nausea, Vomiting, Abdominal Pain Genitourinary: Absent: Urgency, Frequency Musculoskeletal: Present: Joint Pain. Absent: Back Pain Neurological: Absent: Headache, Anxiety, Depressed Skin: Absent: Lesions, Rash Endocrine: Absent: Intolerance to Cold, Intolerance to Heat Misc: All systems neg except as marked Immunizations: IMMUNIZATION HX Immunizations Up to Date No History of Influenza Vaccine No Hx Pneumococcal Vaccination Yes Allergies/Adverse Reactions: Allergies Allergy/AdvReac Type Severity Reaction Status Date / Time adhesive tape Allergy Mild rash Verified 06/16/19 12:59 pregabalin [From Lyrica] Allergy Mild Hives Verified 06/16/19 12:59 Sulfa (Sulfonamide Allergy Mild rash Verified 06/16/19 12:59 Antibiotics) Tetracyclines Allergy Mild Hives Verified 06/16/19 12:59 Home Medications: HOME MEDICATIONS Aspirin [Aspirin EC] 81 mg PO DAILY 06/08/15 [Last Taken 01/16/19] gabapentin 100 mg capsule 200 mg PO BID #360 cap 01/02/19 [Last Taken 01/20/19] losartan 100 mg tablet 100 mg PO DAILY #90 tab 01/02/19 [Last Taken 01/21/19] acetaminophen 500 mg tablet 1,000 mg PO BID PRN tab 02/10/19 [Last Taken Unknown] [place]-3/Dha/Epa/Fish Oil [Fish Oil 500 mg Softgel] 1 ea PO DAILY 06/16/19 [Last Taken Unknown] Exam - Exam Vital Signs: Vital Signs - Last Taken Temp 36.8 C 06/16/19 10:55 Pulse 85 06/16/19 10:55 Resp 14 06/16/19 10:55 BP 149/78 06/16/19 10:55 Pulse Ox 99 06/16/19 10:55 Constitutional: Present: Alert, Oriented x3, Cooperative, Elderly ENT Exam: Present: hearing grossly normal Eye Exam: bilateral eye: normal inspection, PERRL, EOMI Neck: Present: supple Respiratory: Present: decreased breath sounds, No rales, No wheezing Cardiovascular/Chest: Present: regular rate, rhythm, no JVD, no murmur Abdomen: Present: Normal bowel sounds, soft, nontender, nondistended Extremity: Present: no pedal edema, no calf tenderness Neurologic: Present: blood bank technician II-XII nml as tested, no motor/sensory deficits, oriented x 3 Diagnostic Studies: Abnormal Lab Results 06/16/19 06/16/19 Range/Units 09:42 09:42 RBC 3.91 L (4.7-6.0) M/mm3 Hgb 11.6 L (13.5-18.0) gm/dL Hct 36.1 L (42.0-52.0) % Immature Gran % (Auto) 1.00 H (0.001-0.429) % Immature Gran # (Auto) 0.06 H (0.000-0.0310) K/mm3 Lymphocytes % 13.0 L (20-51) % Monocytes % 11.0 H (0.0-9) % Eosinophils % 3.4 H (0.0-3.0) % Lymphocytes # 0.81 L (1.5-3.5) k/mm3 Est GFR (Non-Af Amer) 53 L (60-130) mL/min Laboratory Results WBC 6.2 K/mm3 (4.0-10.5) 06/16/19 09:42 RBC 3.91 M/mm3 (4.7-6.0) L 06/16/19 09:42 Hgb 11.6 gm/dL (13.5-18.0) L 06/16/19 09:42 Hct 36.1 % (42.0-52.0) L 06/16/19 09:42 MCV 92.3 fl (78-100) 06/16/19 09:42 MCH 29.7 pg (27-31) 06/16/19 09:42 MCHC 32.1 g/dl (32-36) 06/16/19 09:42 RDW 13.2 % (11.5-14.0) 06/16/19 09:42 Plt Count 184 K/mm3 (150-450) 06/16/19 09:42 MPV 9.1 fl (8-11.3) 06/16/19 09:42 Immature Gran % (Auto) 1.00 % (0.001-0.429) H 06/16/19 09:42 Immature Gran # (Auto) 0.06 K/mm3 (0.000-0.0310) H 06/16/19 09:42 Neutrophils % 71.3 % (42-75.0) 06/16/19 09:42 Lymphocytes % 13.0 % (20-51) L 06/16/19 09:42 Monocytes % 11.0 % (0.0-9) H 06/16/19 09:42 Eosinophils % 3.4 % (0.0-3.0) H 06/16/19 09:42 Basophils % 0.3 % (0.0-1.0) 06/16/19 09:42 Nucleated RBC % 0.0 k/mm3 (0-1) 06/16/19 09:42 Neutrophils # 4.4 K/mm3 (1.3-6.0) 06/16/19 09:42 Lymphocytes # 0.81 k/mm3 (1.5-3.5) L 06/16/19 09:42 Monocytes # 0.7 k/mm3 (0.0-1.0) 06/16/19 09:42 Eosinophils # 0.2 k/mm3 (0.0-0.7) 06/16/19 09:42 Absolute Basophils 0.0 k/mm3 (0.0-0.1) 06/16/19 09:42 Sodium 138 mmol/L (132-142) 06/16/19 09:42 Plasma Sodium 138 mmol/L (130-142) 06/16/19 09:42 Potassium 4.4 mmol/L (3.4-4.6) 06/16/19 09:42 Chloride 103 mmol/L (97-106) 06/16/19 09:42 Carbon Dioxide 29.5 mmol/L (24-32.6) 06/16/19 09:42 Anion Gap 9.9 mmol/L (6.8-13.8) 06/16/19 09:42 BUN 23 mg/dL (6-23) D 06/16/19 09:42 Creatinine 1.38 mg/dL (0.4-1.4) 06/16/19 09:42 Est GFR (Non-Af Amer) 53 mL/min (60-130) L 06/16/19 09:42 BUN/Creatinine Ratio 16.7 (9.0-21.6) 06/16/19 09:42 Random Glucose 105 mg/dL (70-110) 06/16/19 09:42 Calcium 8.5 mg/dL (7.9-10.9) 06/16/19 09:42 Calcium Adj for Albumin 8.7 mg/dL (8.4-10.2) 06/16/19 09:42 Magnesium 1.8 mg/dL (1.2-2.8) 06/16/19 09:42 Total Bilirubin 0.5 mg/dL (0.0-1.1) 06/16/19 09:42 AST 18 U/L (0-48) 06/16/19 09:42 ALT 25 U/L (19-67) 06/16/19 09:42 Alkaline Phosphatase 69 U/L (50-170) 06/16/19 09:42 Troponin I Less than 0.017 ng/mL (0.00-0.10) 06/16/19 09:42 Total Protein 6.8 gm/dL (6.2-8.2) 06/16/19 09:42 Albumin 3.4 gm/dl (3.4-5.0) 06/16/19 09:42 Assessment/Plan - Narrative Narrative: Duke Hill was admitted for for multiple brief syncopal episodes. His head CT scan and blood work were essentially within normal limits. He will undergo MRI of his brain, carotid ultrasound, echo with bubble study and from his history we will also likely do an EEG. His syncopal episodes likely was initiated by a vasovagal response rom his neck pain but cannot rule out Acute CVA or first episode of Seizure disorder. He will stay on telemetry. We will continue his home medications at this time. Further plans depend on results of work-up. - Assessment/Plan (1) Syncope and collapse Problem: Acute (2) Hypertension Problem: Chronic Qualifiers: Hypertension type: essential hypertension Qualified Code(s): I10 - Essential (primary) hypertension (3) Osteoarthritis Assessment: s/p LTKA Problem: Chronic Qualifiers: Osteoarthritis location: knee Osteoarthritis type: primary Laterality: left Qualified Code(s): M17.12 - Unilateral primary osteoarthritis, left knee (4) Right bundle branch block (RBBB) Problem: Chronic (5) Hyperlipidemia Problem: Chronic Qualifiers: Hyperlipidemia type: pure hypercholesterolemia Qualified Code(s): E78.00 - Pure hypercholesterolemia, unspecified (6) 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
--- NOTE | 2019-06-17 11:45 | DS ---
Date of Discharge:: 06/17/19 Hospital Course: 79-year-old male admitted for multiple unexplained syncopal episodes and possible seizure activity that occurred yesterday morning. Patient had an uneventful hospital course, there was no recurrence of seizure activity or syncope. He denies any chest pain or shortness of breath or dizziness. Vitals remained stable and no adverse events were reported. Patient's brain MRI and carotid Doppler were negative for any acute findings, only chronic changes related to atherosclerosis were reported. Patient was also scheduled for an EEG to rule out seizure disorder, however the study could not be carried out on an inpatient basis due to staffing. So order for outpatient EEG for tomorrow morning has been placed. Patient and his family are eager to get him home and given his current status I have agreed to discharge him with instructions to follow-up with his PCP in the next few days. Procedures Performed: none Results and Findings: Lab Pending Results 06/16/19 09:42: WBC 6.2, RBC 3.91 L, Hgb 11.6 L, Hct 36.1 L, MCV 92.3, MCH 29.7, MCHC 32.1, RDW 13.2, Plt Count 184, MPV 9.1, Immature Gran % (Auto) 1.00 H, Immature Gran # (Auto) 0.06 H, Neutrophils % 71.3, Lymphocytes % 13.0 L, Monocytes % 11.0 H, Eosinophils % 3.4 H, Basophils % 0.3, Nucleated RBC % 0.0, Neutrophils # 4.4, Lymphocytes # 0.81 L, Monocytes # 0.7, Eosinophils # 0.2, Absolute Basophils 0.0 06/16/19 09:42: Sodium 138, Plasma Sodium 138, Potassium 4.4, Chloride 103, Carbon Dioxide 29.5, Anion Gap 9.9, BUN 23 D, Creatinine 1.38, Est GFR (Non-Af Amer) 53 L, BUN/Creatinine Ratio 16.7, Random Glucose 105, Calcium 8.5, Calcium Adj for Albumin 8.7, Magnesium 1.8, Total Bilirubin 0.5, AST 18, ALT 25, Alkaline Phosphatase 69, Troponin I Less than 0.017, Total Protein 6.8, Albumin 3.4 Discharge Location: Home Disposition: Home self-care Condition: Fair Face to Face Encounter completed per CMS Guidelines: No Discharge Activity: Activity as tolerated Discharge Diet: General/regular food Referrals: Dat Morgan MD [Primary Care Provider] - Complete Home Medications List: Complete Home Medication List: Aspirin [Aspirin EC] 81 mg PO DAILY 06/08/15 gabapentin 100 mg capsule 200 mg PO BID #360 cap 01/02/19 losartan 100 mg tablet 100 mg PO DAILY #90 tab 01/02/19 acetaminophen 500 mg tablet 1,000 mg PO BID PRN tab 02/10/19 [place]-3/Dha/Epa/Fish Oil [Fish Oil 500 mg Softgel] 1 ea PO DAILY 06/16/19
[2019-06-17 12:11] VITALS: BP 145/62
--- NOTE | 2019-06-18 13:14 | ECHO ---
This report is available in the EMR
== END 2019-06-17 12:30 | disposition home or self-care (01) ==
LOC: MS 09:15 → ER 09:15 → MS 10:55
PROVIDERS: ADMIT Internal Medicine; ATTEND Internal Medicine
CPT/HCPCS: 36415; 70450; 70553; 80053; 83735; 84484; 85025; 87081; 93005; 93306; 93880; 99285; A9576; G0378

== ENCOUNTER 2020-10-23 15:33 | Observation (INO) ==
[2020-10-23] MEDS ORDERED: NORMAL SALINE 1,000 ML IV ONE ×2 (15:47→22:40)
[2020-10-23] MEDS ORDERED: ACETAMINOPHEN 1,000 MG/100 ML BTL IV ONE (15:47)
[2020-10-23 16:23] LABS: Hemoglobin 10.7 gm/dL (13.5-18.0); Mean Cell Volume 92.4 fl (78-100); Mean Corpuscular Hemoglobin 29.1 pg (27-31); Mean Corpuscular Hgb Conc 31.5 g/dl (32-36); Platelet Count 148 K/mm3 (150-450); Red Blood Count 3.68 M/mm3 (4.7-6.0); Red Cell Distribution Width 12.6 % (11.5-14.0); White Blood Count 4.2 K/mm3 (4.0-10.5)
[2020-10-23 16:29] LABS: Total Cells Counted 100
[2020-10-23 16:39] LABS: Troponin I Less than 0.017 ng/mL (0.00-0.10)
[2020-10-23 16:41] LABS: ALT 33 U/L (19-67); AST 35 U/L (0-48); Albumin * 2.9 gm/dl (3.4-5.0); Alkaline Phosphatase * 79 U/L (50-170); Anion Gap 14.1 mmol/L (6.8-13.8); BUN/Creatinine Ratio 11.9 (9.0-21.6); Bilirubin, Total 1.1 mg/dL (0.0-1.1); Blood Urea Nitrogen 20 mg/dL (6-23); Ca. Corrected For Albumin 9.1 mg/dL (8.4-10.2); Calcium * 8.5 mg/dL (7.9-10.9); Carbon Dioxide 23.6 mmol/L (24-32.6); Chloride 103 mmol/L (97-106); Glucose * 110 mg/dL (70-110); Potassium 3.7 mmol/L (3.4-4.6); Sodium 137 mmol/L (132-142); TSH * 0.677 uIU/mL (0.358-3.74); Total Protein 6.7 gm/dL (6.2-8.2)
[2020-10-23 16:51] LABS: Band 11 % (0-2.0); Basophil 1 % (0-1); Lymphocyte 8 % (20-51); Monocyte 5 % (0-9); Neutrophil 75 % (42-75); Neutrophil # 3.2 K/mm3 (1.3-6.0)
[2020-10-23 16:52] LABS: Anisocytosis Trace; Platelet Estimate Normal (NORMAL)
[2020-10-23 17:48] LABS: SARS-CoV-2 Not Detected (NotDetected)
[2020-10-23 18:02] LABS: Urine Bilirubin Negative (NEGATIVE); Urine Ketone 5 mg/dL (NEGATIVE); Urine Nitrite Negative (NEGATIVE); Urine Protein 100 mg/dL (NEGATIVE); Urine Specific Gravity 1.015 SP.GR. (1.005-1.030); Urine Urobilinogen Normal (NORMAL); Urine pH 5.5 pH (5.0-7.0)
[2020-10-23 18:12] LABS: Urine Appearance Slightly Cloudy (CLEAR); Urine Bacteria 1+; Urine Blood 10 /ul (NEGATIVE); Urine Color Yellow; Urine RBC 0-5 /hpf (0-5)
[2020-10-23] MEDS ORDERED: cefTRIAXone SODIUM 1,000 MG/100 ML BAG IV ONE (18:37)
--- NOTE | 2020-10-23 18:50 | ERNOTE ---
Medical Problem HPI - Narrative Date of Service: 10/23/20 - General Chief Complaint: General Assessment Time Seen by Provider: 10/23/20 15:34 Source: patient Exam Limitations: no limitations - Immun/Allergies/Home Medications Immunizations: IMMUNIZATION HX Immunizations Up to Date Yes History of Influenza Vaccine No Hx Pneumococcal Vaccination No Allergies/Adverse Reactions: Allergies adhesive tape Allergy (Mild, Verified 10/23/20 15:47) rash pregabalin [From Lyrica] Allergy (Mild, Verified 10/23/20 15:47) Hives Sulfa (Sulfonamide Antibiotics) Allergy (Mild, Verified 10/23/20 15:47) rash Tetracyclines Allergy (Mild, Verified 10/23/20 15:47) Hives Home Medications: HOME MEDICATIONS [place]-3/Dha/Epa/Fish Oil [Fish Oil 500 mg Softgel] 1 ea PO DAILY 06/16/19 [Last Taken Unknown] losartan 100 mg tablet 100 mg PO DAILY #90 tab 10/29/19 [Last Taken Unknown] aspirin 81 mg tablet,delayed release 81 mg PO DAILY #0.1 tab 01/07/20 [Last Taken Unknown] amlodipine 10 mg tablet 10 mg PO DAILY 08/16/20 [Last Taken Unknown] finasteride 1 mg tablet 1 mg PO DAILY 08/16/20 [Last Taken Unknown] zinc 50 mg tablet 100 mg PO DAILY tab 08/16/20 [Last Taken Unknown] amoxicillin 500 mg capsule 500 mg PO .COMPLEX #4 cap 09/02/20 [Last Taken Unknown] gabapentin 100 mg capsule 200 mg PO DAILY #60 cap 09/09/20 [Last Taken Unknown] lanolin alcohols-mineral oil-w.petrolatum-ceresin topical cream 1 applic TP TID- QID PRN #454 g 09/26/20 [Last Taken Unknown] tamsulosin 0.4 mg capsule 0.8 mg PO DAILY cap 09/26/20 [Last Taken Unknown] Amox Tr/Potassium Clavulanate [Augmentin 875-125 Tablet] 875 mg PO Q12H #20 tab 10/22/20 [Last Taken Unknown] - History of Present History Narrative: Patient presents to the ED via EMS for generalized weakness, fever. I saw the patient last night and he was feeling poorly throughout the day. He did not want to have testing done so I initiated antibiotics., Oral Augmentin given and Rx for that which he took today. Despite this he felt very poorly today. "weak as a kitten". Couldn't get up and walk d/t generalized weakness so EMS called. Fever here higher than last night. No CP or SOB> No ST. No abdominal pain. Timing: constant, getting worse Severity: severe Modifying Factors - (Improves): Present: other - nothing Modifying Factors - (Worsens): Present: other - nothing Review of Systems - Review of Systems Constitutional: Present: fever EYE: Present: no symptoms reported ENT: Absent: sore throat Respiratory: Absent: shortness of breath Cardiology: Absent: chest pain Gastrointestinal/Abdominal: Absent: abdominal pain Genitourinary: Absent: dysuria Neurological: Present: weakness All Other Systems: All systems neg except as marked Medical History (Last Reviewed 10/23/20 @ 18:42 by Meet Pino MD) CVA (cerebral vascular accident) Onset Date: ~12/2014 Cellulitis Onset Date: 11/2018 back Enlarged prostate Onset Date: Unknown Knee pain, bilateral Onset Date: Unknown Malignant melanoma Onset Date: ~09/2017 Rt hand - Removal by Dr. Aguilar Wrist pain Onset Date: Unknown Bilateral HTN (hypertension) Onset Date: Unknown Surgical History: Surgical History (Last Reviewed 10/23/20 @ 18:42 by Meet Pino MD) Status post total right knee replacement (Resolved) Onset Date: ~01/21/19 01/21/19 Judith History of carpal tunnel release Onset Date: Unknown 06/24/15 Endoscopic left - Dr. Wong History of total left knee replacement Onset Date: 11/12/18 Dr. Wong Hx of appendectomy Onset Date: 1984 Hx of colonoscopy Onset Date: Unknown 2014 WNL Family History: Family History (Last Reviewed 10/23/20 @ 18:42 by Meet Pino MD) Father Kidney disease Mother CVA (cerebral vascular accident) Hypertension Sister Alive and well 5 sisters Son Alive and well 2 sons Social History: (Last Reviewed 10/23/20 @ 18:42 by Meet Pino MD) Social History: Marital status: household members: spouse current occupational status: employed current occupation: retired Highest level of school completed/degree received: some college, no degree Service: No Tobacco: Smoking Status: Former smoker Smoking End Date: 06/17/88 Alcohol: alcohol intake: current alcohol intake frequency: holiday/special occasion details: Some day rare Substance Use: substance use type: does not use Dietary Habits: caffeine: Yes caffeine comment: Current every day 2 C coffee Physical Exam - Physical Exam General Appearance: Present: alert, other - does not appear to feel well, no acute distress, generalized weakness. Head Exam: Present: normal inspection, no evidence of injury Eye Exam: Normal inspection: bilateral, PERRL: bilateral Ears, Nose, Throat: Present: dry mucous membranes Neck: Present: normal inspection Respiratory: Present: no respiratory distress, normal breath sounds, lungs clear Cardiovascular/Chest: Present: regular rate, rhythm Gastrointestinal/Abdominal: Present: normal bowel sounds, nontender, soft Back Exam: Absent: CVA tenderness (R), CVA tenderness (L) Extremity Exam: Present: non-tender Neurological Exam: Present: alert, other - generalized weakness noted but no acute unilateral focal motor or sensory deficits. Skin Exam: Present: normal color, warm/dry, pallor Progress - Results and Orders Patient's Lab Results:: I have reviewed the patient's lab results. - Vital Signs Patient's Vital Signs:: I have reviewed the patient's vital signs. Vital Signs: Vital Signs 10/23/20 15:41 Temperature 38.7 C H Pulse Rate 76 Respiratory Rate 19 Blood Pressure 132/52 O2 Sat by Pulse Oximetry 97 - EKG EKG #1 EKG read: Interp. by me EKG Comments: Paced rhythm rate 76. Non-specific but no clear evidence of STEMI - X-Ray X-Ray #1 X-Ray: chest Interpretation: Interp. by me X-ray Comments: I personally reviewed the CXR images as well as radiology report. - Progress/Reassessment Chief Complaint: General Assessment Progress Note-Subjective: 10/23/20 18:47 Patient dehydrated and fever. IV fluids and IV ABx given here. He has a failure of outpatient management as he has been taking oral antibiotics and has higher fever and feeling worse. Given this I spoke with Dr Justin who will admit obs for IV fluids, IV abx and further management. Patient and family agreeable. Departure Clinical Impression: Failure of outpatient treatment, UTI (urinary tract infection), Fever, Dehydration, Generalized weakness - Departure Disposition: Still a patient Condition: Fair Referrals: Dat Morgan MD [Primary Care Provider] -
[2020-10-23] MEDS ORDERED: ACETAMINOPHEN 500 MG TABLET PO PRN (22:37)
[2020-10-23] MEDS ORDERED: MINERAL OIL/PETROLATUM,WHITE 454 APPL JAR TP PRN (22:37)
--- NOTE | 2020-10-23 22:55 | HP ---
Chief Complaint - Chief Complaint Date of Service: 10/23/20 Time of Service: 22:46 Chief Complaint: I have been feeling weak and had fever History of Present Illness: 80-year-old male with past medical history of hypertension, pacemaker dependent, CKD 3, obesity, and BPH was brought to the ER by EMS for generalized weakness and fever of several days duration. Patient reports coming to the ER yesterday for significant generalized weakness and not feeling well. The patient was prescribed oral antibiotics and decided to leave the ER. Once home he started the antibiotics but developed fever chills, his generalized weakness worsened to the point where this morning he cannot ambulate nor could he bring a spoon to his mouth. The patient's became concerned and called an ambulance to come to the hospital. Once in the ER work-up was significant for a positive urinalysis and signs and symptoms of dehydration. The patient was started on IV fluids and IV antibiotics. Urine cultures were taken. Medical History (Last Reviewed 10/23/20 @ 18:42 by Meet Pino MD) CVA (cerebral vascular accident) Onset Date: ~12/2014 Cellulitis Onset Date: 11/2018 back Enlarged prostate Onset Date: Unknown Knee pain, bilateral Onset Date: Unknown Malignant melanoma Onset Date: ~09/2017 Rt hand - Removal by Dr. Aguilar Wrist pain Onset Date: Unknown Bilateral HTN (hypertension) Onset Date: Unknown Surgical History: Surgical History (Last Reviewed 10/23/20 @ 18:42 by Meet Pino MD) Status post total right knee replacement (Resolved) Onset Date: ~01/21/19 01/21/19 Judith History of carpal tunnel release Onset Date: Unknown 06/24/15 Endoscopic left - Dr. Wong History of total left knee replacement Onset Date: 11/12/18 Dr. Wong Hx of appendectomy Onset Date: Unknown 1984 Hx of colonoscopy Onset Date: Unknown 2014 WNL Family History: Family History (Last Reviewed 10/23/20 @ 18:42 by Meet Pino MD) Father Kidney disease Mother CVA (cerebral vascular accident) Hypertension Sister Alive and well 5 sisters Son Alive and well 2 sons Social History: (Last Reviewed 10/23/20 @ 18:42 by Meet Pino MD) Social History: Marital status: household members: spouse current occupational status: employed current occupation: retired Highest level of school completed/degree received: some college, no degree Service: No Tobacco: Smoking Status: Former smoker Smoking End Date: 06/17/88 Alcohol: alcohol intake: current alcohol intake frequency: holiday/special occasion details: Some day rare Substance Use: substance use type: does not use Dietary Habits: caffeine: Yes caffeine comment: Current every day 2 C coffee Peds Patient Hx - Developmental: No Pertinent Hx Peds Patient Hx - Medical: No Pertinent Hx Peds Patient Hx - Cardiac/Respiratory: No Pertinent Hx Peds Patient Hx - Surgical: No Surgical History Patient History - Cancer: No Hx of Cancer Review Of Systems (GEN) - Review of Systems Generalized/Overall Review: Present: Weakness, Chills, Fever, Fatigue EENTM: Present: No Symptoms Reported Respiratory: Present: No Symptoms Reported Cardiac: Present: No Symptoms Reported Abdominal: Present: No Symptoms Reported Genitourinary: Present: No Symptoms Reported Musculoskeletal: Present: No Symptoms Reported Neurological: Present: No Symptoms Reported Skin: Present: No Symptoms Reported Endocrine: Present: No Symptoms Reported Immunizations: IMMUNIZATION HX Immunizations Up to Date Yes History of Influenza Vaccine No Hx Pneumococcal Vaccination No Allergies/Adverse Reactions: Allergies Allergy/AdvReac Type Severity Reaction Status Date / Time adhesive tape Allergy Mild rash Verified 10/23/20 15:47 pregabalin [From Lyrica] Allergy Mild Hives Verified 10/23/20 15:47 Sulfa (Sulfonamide Allergy Mild rash Verified 10/23/20 15:47 Antibiotics) Tetracyclines Allergy Mild Hives Verified 10/23/20 15:47 Home Medications: HOME MEDICATIONS [place]-3/Dha/Epa/Fish Oil [Fish Oil 500 mg Softgel] 1 ea PO DAILY 06/16/19 [Last Taken Unknown] losartan 100 mg tablet 100 mg PO DAILY #90 tab 10/29/19 [Last Taken Unknown] aspirin 81 mg tablet,delayed release 81 mg PO DAILY #0.1 tab 01/07/20 [Last Taken Unknown] amlodipine 10 mg tablet 10 mg PO DAILY 08/16/20 [Last Taken Unknown] finasteride 1 mg tablet 1 mg PO DAILY 08/16/20 [Last Taken Unknown] zinc 50 mg tablet 100 mg PO DAILY tab 08/16/20 [Last Taken Unknown] amoxicillin 500 mg capsule 500 mg PO .COMPLEX #4 cap 09/02/20 [Last Taken Unknown] gabapentin 100 mg capsule 200 mg PO DAILY #60 cap 09/09/20 [Last Taken Unknown] lanolin alcohols-mineral oil-w.petrolatum-ceresin topical cream 1 applic TP TID- QID PRN #454 g 09/26/20 [Last Taken Unknown] tamsulosin 0.4 mg capsule 0.8 mg PO DAILY cap 09/26/20 [Last Taken Unknown] Amox Tr/Potassium Clavulanate [Augmentin 875-125 Tablet] 875 mg PO Q12H #20 tab 10/22/20 [Last Taken Unknown] Exam - Exam Vital Signs: Vital Signs - Last Taken Temp 36.7 C 10/23/20 19:36 Pulse 67 10/23/20 19:49 Resp 16 10/23/20 19:36 BP 98/52 10/23/20 19:36 Pulse Ox 96 10/23/20 19:36 Constitutional: Present: Alert, Oriented x3, Cooperative, Well developed, Well nourished, No distress, Morbidly obese ENT Exam: Present: normal ENT inspection, hearing grossly normal Eye Exam: bilateral eye: normal inspection, PERRL, EOMI Neck: Present: non-tender, full range of motion, supple, normal inspection, trachea midline Back Exam: Present: normal inspection, no CVA tenderness, no vertebral tenderness Breasts: Present: Exam deferred, Nontender Respiratory: Present: chest non-tender, lungs clear, normal breath sounds, no respiratory distress, no accessory muscle use Cardiovascular/Chest: Present: normal peripheral pulses, regular rate, rhythm, no chest tenderness, no edema, no gallop, no JVD, no murmur, no rub Peripheral Pulses: dorsalis-pedis (R): 2+, dorsalis-pedis (L): 2+ Abdomen: Present: Normal bowel sounds, soft, nontender, nondistended, no rebound tenderness, no hepatospenomegaly, no masses, obese /Rectal: Present: Exam deferred Extremity: Present: normal range of motion, non-tender, normal inspection, no pedal edema, no calf tenderness, normal capillary refill Skin Exam: Present: normal color, warm/dry, no cyanosis Lymphatic: Present: no adenopathy Neurologic: Present: disposition clerk II-XII nml as tested, no motor/sensory deficits, alert, normal mood/affect, oriented x 3 Appearance: Present: appropriate appearance, appropriate insight, neat, no memory impairment Eye contact: Present: cooperative, good eye contact, normal speech Thoughts: Present: normal thought pattern, no apparent hallucination Diagnostic Studies: Abnormal Lab Results 10/23/20 10/23/20 10/23/20 Range/Units 16:13 16:13 16:13 RBC 3.68 L (4.7-6.0) M/mm3 Hgb 10.7 L (13.5-18.0) gm/dL Hct 34.0 L (42.0-52.0) % MCHC 31.5 L (32-36) g/dl Plt Count 148 L (150-450) K/mm3 Band Neuts % (Manual) 11 H (0-2.0) % Lymphocytes % (Manual) 8 L (20-51) % Lymphocytes # (Manual) 0.3 L (1.5-3.5) k/mm3 Carbon Dioxide 23.6 L (24-32.6) mmol/L Anion Gap 14.1 H (6.8-13.8) mmol/L Creatinine 1.68 H (0.4-1.4) mg/dL Est GFR (Non-Af Amer) 42 L D (60-130) mL/min Lactic Acid, Venous 2.1 H (0.4-2.0) mmol/L Albumin 2.9 L (3.4-5.0) gm/dl Urine Protein (NEGATIVE) mg/dL Urine Blood (NEGATIVE) /ul Ur Leukocyte Esterase (NEGATIVE) /ul Urine WBC (0-5) /hpf Urine Bacteria (NONE) 10/23/20 Range/Units 17:57 RBC (4.7-6.0) M/mm3 Hgb (13.5-18.0) gm/dL Hct (42.0-52.0) % MCHC (32-36) g/dl Plt Count (150-450) K/mm3 Band Neuts % (Manual) (0-2.0) % Lymphocytes % (Manual) (20-51) % Lymphocytes # (Manual) (1.5-3.5) k/mm3 Carbon Dioxide (24-32.6) mmol/L Anion Gap (6.8-13.8) mmol/L Creatinine (0.4-1.4) mg/dL Est GFR (Non-Af Amer) (60-130) mL/min Lactic Acid, Venous (0.4-2.0) mmol/L Albumin (3.4-5.0) gm/dl Urine Protein 100 H (NEGATIVE) mg/dL Urine Blood 10 H (NEGATIVE) /ul Ur Leukocyte Esterase 25 H (NEGATIVE) /ul Urine WBC 5-10 H (0-5) /hpf Urine Bacteria 1+ H (NONE) Laboratory Results WBC 4.2 K/mm3 (4.0-10.5) 10/23/20 16:13 RBC 3.68 M/mm3 (4.7-6.0) L 10/23/20 16:13 Hgb 10.7 gm/dL (13.5-18.0) L 10/23/20 16:13 Hct 34.0 % (42.0-52.0) L 10/23/20 16:13 MCV 92.4 fl (78-100) 10/23/20 16:13 MCH 29.1 pg (27-31) 10/23/20 16:13 MCHC 31.5 g/dl (32-36) L 10/23/20 16:13 RDW 12.6 % (11.5-14.0) 10/23/20 16:13 Plt Count 148 K/mm3 (150-450) L 10/23/20 16:13 MPV 9.0 fl (8-11.3) 10/23/20 16:13 Neutrophils % (Manual) 75 % (42-75) 10/23/20 16:13 Band Neuts % (Manual) 11 % (0-2.0) H 10/23/20 16:13 Lymphocytes % (Manual) 8 % (20-51) L 10/23/20 16:13 Monocytes % (Manual) 5 % (0-9) 10/23/20 16:13 Basophils % (Manual) 1 % (0-1) 10/23/20 16:13 Neutrophils # (Manual) 3.2 K/mm3 (1.3-6.0) 10/23/20 16:13 Lymphocytes # (Manual) 0.3 k/mm3 (1.5-3.5) L 10/23/20 16:13 Monocytes # (Manual) 0.2 k/mm3 (0.0-1.0) 10/23/20 16:13 Basophils # (Manual) 0.0 k/mm3 (0.0-0.1) 10/23/20 16:13 Toxic Vacuolation Trace 10/23/20 16:13 Platelet Estimate Normal (NORMAL) 10/23/20 16:13 Anisocytosis Trace 10/23/20 16:13 Sodium 137 mmol/L (132-142) 10/23/20 16:13 Plasma Sodium 137 mmol/L (130-142) 10/23/20 16:13 Potassium 3.7 mmol/L (3.4-4.6) 10/23/20 16:13 Chloride 103 mmol/L (97-106) 10/23/20 16:13 Carbon Dioxide 23.6 mmol/L (24-32.6) L 10/23/20 16:13 Anion Gap 14.1 mmol/L (6.8-13.8) H 10/23/20 16:13 BUN 20 mg/dL (6-23) 10/23/20 16:13 Creatinine 1.68 mg/dL (0.4-1.4) H 10/23/20 16:13 Est GFR (Non-Af Amer) 42 mL/min (60-130) L D 10/23/20 16:13 BUN/Creatinine Ratio 11.9 (9.0-21.6) 10/23/20 16:13 Random Glucose 110 mg/dL (70-110) 10/23/20 16:13 Lactic Acid, Venous 1.7 mmol/L (0.4-2.0) 10/23/20 18:43 Calcium 8.5 mg/dL (7.9-10.9) 10/23/20 16:13 Calcium Adj for Albumin 9.1 mg/dL (8.4-10.2) 10/23/20 16:13 Total Bilirubin 1.1 mg/dL (0.0-1.1) 10/23/20 16:13 AST 35 U/L (0-48) 10/23/20 16:13 ALT 33 U/L (19-67) 10/23/20 16:13 Alkaline Phosphatase 79 U/L (50-170) 10/23/20 16:13 Troponin I Less than 0.017 ng/mL (0.00-0.10) 10/23/20 16:13 Total Protein 6.7 gm/dL (6.2-8.2) 10/23/20 16:13 Albumin 2.9 gm/dl (3.4-5.0) L 10/23/20 16:13 TSH 0.677 uIU/mL (0.358-3.74) 10/23/20 16:13 Urine Color Yellow 10/23/20 17:57 Urine Appearance Slightly cloudy (CLEAR) 10/23/20 17:57 Urine pH 5.5 pH (5.0-7.0) 10/23/20 17:57 Ur Specific [place] 1.015 SP.GR. (1.005-1.030) 10/23/20 17:57 Urine Protein 100 mg/dL (NEGATIVE) H 10/23/20 17:57 Urine Glucose (UA) Negative mg/dL (NEGATIVE) 10/23/20 17:57 Urine Ketones 5 mg/dL (NEGATIVE) 10/23/20 17:57 Urine Blood 10 /ul (NEGATIVE) H 10/23/20 17:57 Urine Nitrate Negative (NEGATIVE) 10/23/20 17:57 Urine Bilirubin Negative mg/dl (NEGATIVE) 10/23/20 17:57 Urine Urobilinogen Normal EU/dl (NORMAL) 10/23/20 17:57 Ur Leukocyte Esterase 25 /ul (NEGATIVE) H 10/23/20 17:57 Urine RBC 0-5 /hpf (0-5) 10/23/20 17:57 Urine WBC 5-10 /hpf (0-5) H 10/23/20 17:57 Ur Epithelial Cells 0-5 /hpf (0-5) 10/23/20 17:57 Urine Bacteria 1+ (NONE) H 10/23/20 17:57 Urine Culture Comments Culture to follow 10/23/20 17:57 Chlamy pneumoniae PCR Not detected (NotDetected) 10/23/20 16:59 Adenovirus (PCR) Not detected (NotDetected) 10/23/20 16:59 B. pertussis DNA (PCR) Not detected (NotDetected) 10/23/20 16:59 B.parapertussis DNA PCR Not detected (NotDetected) 10/23/20 16:59 Coronavirus OC43 (PCR) Not detected (NotDetected) 10/23/20 16:59 Coronavirus HKU1 (PCR) Not detected (NotDetected) 10/23/20 16:59 Coronavirus 229E (PCR) Not detected (NotDetected) 10/23/20 16:59 Coronavirus NL63 (PCR) Not detected (NotDetected) 10/23/20 16:59 Human Metapneumovir PCR Not detected (NotDetected) 10/23/20 16:59 Influenza A (RT-PCR) Not detected (NotDetected) 10/23/20 16:59 Influenza B (RT-PCR) Not detected (NotDetected) 10/23/20 16:59 M. pneumoniae (PCR) Not detected (NotDetected) 10/23/20 16:59 Parainfluenza 1 (PCR) Not detected (NotDetected) 10/23/20 16:59 Parainfluenza 2 (PCR) Not detected (NotDetected) 10/23/20 16:59 Parainfluenza 3 (PCR) Not detected (NotDetected) 10/23/20 16:59 Parainfluenza 4 (PCR) Not detected (NotDetected) 10/23/20 16:59 RSV (PCR) Not detected (NotDetected) 10/23/20 16:59 Rhinovirus (PCR) Not detected (NotDetected) 10/23/20 16:59 SARS-CoV-2 (PCR) Not detected (NotDetected) 10/23/20 16:59 Assessment/Plan - Narrative Narrative: Patient was evaluated medical chart was reviewed and decision to admit for acute dehydration, generalized weakness, and UTI was made. The patient will need intrahospital care with IV hydration and IV antibiotics to treat his UTI. Urine culture has been sent the lab, will follow up with susceptibility report. At the moment he maintains stable vitals and is resting comfortably in his bed. We will continue to monitor him closely. - Assessment/Plan (1) CRF (chronic renal failure) Problem: Chronic Qualifiers: Chronic kidney disease stage: stage 3 (moderate) (2) Fever Problem: Acute (3) Failure of outpatient treatment Problem: Acute (4) UTI (urinary tract infection) Problem: Acute (5) Dehydration Problem: Acute (6) Generalized weakness Problem: Acute (7) Complaints of weakness of lower extremity Problem: Acute (8) Anemia Problem: Chronic Qualifiers: (9) Acute kidney injury superimposed on CKD Problem: Acute
[2020-10-24] MEDS ORDERED: MINERAL OIL/PETROLATUM,WHITE 454 APPL JAR TP PRN (06:30)
[2020-10-24] MEDS ORDERED: PANTOPRAZOLE SODIUM 20 MG TABLET.DR PO SCH (07:00)
[2020-10-24] MEDS ORDERED: LOSARTAN POTASSIUM 50 MG TABLET PO SCH (09:00)
[2020-10-24] MEDS ORDERED: OMEGA-3 FATTY ACIDS 1 CAP CAPSULE PO SCH (09:00)
[2020-10-24] MEDS ORDERED: ASPIRIN 81 MG TABLET.DR PO SCH (09:00)
[2020-10-24] MEDS ORDERED: ZINC SULFATE 220 MG CAPSULE PO SCH (09:00)
[2020-10-24] MEDS ORDERED: amLODIPine BESYLATE 10 MG TABLET PO SCH (09:00)
[2020-10-24] MEDS ORDERED: GABAPENTIN 100 MG CAPSULE PO SCH (09:00)
[2020-10-24] MEDS ORDERED: TAMSULOSIN HCL 0.4 MG CAP.SR.24H PO SCH ×2 (09:00→18:00)
[2020-10-24] MEDS ORDERED: NORMAL SALINE 1,000 ML IV PRN (09:03)
--- NOTE | 2020-10-24 09:08 | DS ---
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 He was in the ER on 10/22/2020 for the same complaint but went home AMA. The patient was prescribed oral antibiotics. Once home he started the antibiotics but developed fever chills, his generalized weakness worsened to the point where this morning he cannot ambulate nor could he bring a spoon to his mouth. The patient's became concerned and called an ambulance to come to the hospital. Once in the ER work-up was significant for a positive urinalysis and signs and symptoms of dehydration. The patient was started on IV fluids and IV antibiotics. Urine cultures were taken. His urine culture and sensitivity shows no growth and likely is secondary to the fact that he had started his antibiotics prior to his admission. He is feeling much better today. We will give him his second dose of Rocephin and discharge him on oral antibiotics. His PT evaluation was cancelled as he was able to walk 100 meters in the hallway and he already has an appointment with PT tomorrow. Procedures Performed: none Results and Findings: Pending Mircobiology Results 10/23/20 17:57 Urine,Voided Urine Culture - Preliminary No Growth Lab Pending Results 10/23/20 16:13: WBC 4.2, RBC 3.68 L, Hgb 10.7 L, Hct 34.0 L, MCV 92.4, MCH 29.1, MCHC 31.5 L, RDW 12.6, Plt Count 148 L, MPV 9.0, Neutrophils % (Manual) 75, Band Neuts % (Manual) 11 H, Lymphocytes % (Manual) 8 L, Monocytes % (Manual) 5, Basophils % (Manual) 1, Neutrophils # (Manual) 3.2, Lymphocytes # (Manual) 0.3 L, Monocytes # (Manual) 0.2, Basophils # (Manual) 0.0, Toxic Vacuolation Trace, Platelet Estimate Normal, Anisocytosis Trace 10/23/20 16:13: Sodium 137, Plasma Sodium 137, Potassium 3.7, Chloride 103, Carbon Dioxide 23.6 L, Anion Gap 14.1 H, BUN 20, Creatinine 1.68 H, Est GFR (Non-Af Amer) 42 L D, BUN/Creatinine Ratio 11.9, Random Glucose 110, Calcium 8.5, Calcium Adj for Albumin 9.1, Total Bilirubin 1.1, AST 35, ALT 33, Alkaline Phosphatase 79, Troponin I Less than 0.017, Total Protein 6.7, Albumin 2.9 L, TSH 0.677 10/23/20 16:13: Lactic Acid, Venous 2.1 H 10/23/20 16:59: Chlamy pneumoniae PCR Not detected, Adenovirus (PCR) Not detected, B. pertussis DNA (PCR) Not detected, B.parapertussis DNA PCR Not detected, Coronavirus OC43 (PCR) Not detected, Coronavirus HKU1 (PCR) Not detected, Coronavirus 229E (PCR) Not detected, Coronavirus NL63 (PCR) Not detected, Human Metapneumovir PCR Not detected, Influenza A (RT-PCR) Not detected, Influenza B (RT-PCR) Not detected, M. pneumoniae (PCR) Not detected, Parainfluenza 1 (PCR) Not detected, Parainfluenza 2 (PCR) Not detected, Parain fluenza 3 (PCR) Not detected, Parainfluenza 4 (PCR) Not detected, RSV (PCR) Not detected, Rhinovirus (PCR) Not detected, SARS-CoV-2 (PCR) Not detected 10/23/20 17:57: Urine Color Yellow, Urine Appearance Slightly cloudy, Urine pH 5.5, Ur Specific [place] 1.015, Urine Protein 100 H, Urine Glucose (UA) Negative, Urine Ketones 5, Urine Blood 10 H, Urine Nitrate Negative, Urine Bilirubin Negative, Urine Urobilinogen Normal, Ur Leukocyte Esterase 25 H, Urine RBC 0-5, Urine WBC 5-10 H, Ur Epithelial Cells 0-5, Urine Bacteria 1+ H, Urine Culture Comments Culture to follow 10/23/20 18:43: Lactic Acid, Venous 1.7 Discharge Location: Home Disposition: Home self-care Condition: Stable Discharge Activity: Activity as tolerated Discharge Diet: Low salt Referrals: Dat Morgan MD [Primary Care Provider] - Additional Patient Instructions (free text): Keep your Physical Therapy at [facility] outpatient rehab already scheduled for tomorrow SaturdayOctober 25 at 2:00pm. Follow up with Dr. Morgan SaturdayOctober 31 at 10:00 a.m. Prescriptions (Any new or edited meds): Ciprofloxacin HCl [Cipro] 500 mg PO BID #14 tab Transmission Status: Pending to [facility] #[id number] Acetaminophen [Tylenol] 500 mg PO Q4H PRN #60 tab PRN Reason: Mild Pain (Pain Scale 1-3) Transmission Status: Received by [facility] #[id number] Complete Home Medications List: Complete Home Medication List: Deep Water-3/Dha/Epa/Fish Oil [Fish Oil 500 mg Softgel] 1 ea PO DAILY 06/16/19 losartan 100 mg tablet 100 mg PO DAILY #90 tab 10/29/19 aspirin 81 mg tablet,delayed release 81 mg PO DAILY #0.1 tab 01/07/20 amlodipine 10 mg tablet 10 mg PO DAILY 08/16/20 finasteride 1 mg tablet 1 mg PO DAILY 08/16/20 zinc 50 mg tablet 100 mg PO DAILY tab 08/16/20 gabapentin 100 mg capsule 200 mg PO DAILY #60 cap 09/09/20 lanolin alcohols-mineral oil-w.petrolatum-ceresin topical cream 1 applic TP TID- QID PRN #454 g 09/26/20 tamsulosin 0.4 mg capsule 0.8 mg PO DAILY cap 09/26/20 Acetaminophen [Tylenol] 500 mg PO Q4H PRN #60 tab 10/24/20 Ciprofloxacin HCl [Cipro] 500 mg PO BID #14 tab 10/24/20 Amb Orders for Discharge: Basic Metabolic Panel Time Frame: 1 Week, Facility: [facility], Location: Laboratory CBC Time Frame: 1 Week, Facility: [facility], Location: Laboratory Forms: Patient Portal Registration
[2020-10-24 15:02] LABS: Hematocrit 32.1 % (42.0-52.0); Hemoglobin 10.1 gm/dL (13.5-18.0); Mean Cell Volume 92.2 fl (78-100); Mean Corpuscular Hgb Conc 31.5 g/dl (32-36); Mean Platelet Volume 9.3 fl (8-11.3); Platelet Count 138 K/mm3 (150-450); Red Blood Count 3.48 M/mm3 (4.7-6.0); Red Cell Distribution Width 12.9 % (11.5-14.0); White Blood Count 13.9 K/mm3 (4.0-10.5)
[2020-10-24 15:09] LABS: Total Cells Counted 100
[2020-10-24 15:26] LABS: Anion Gap 12.2 mmol/L (6.8-13.8); BUN/Creatinine Ratio 15.2 (9.0-21.6); Calcium * 8.4 mg/dL (7.9-10.9); Carbon Dioxide 26.5 mmol/L (24-32.6); Estimated Creat Clear 35.9; Potassium 3.7 mmol/L (3.4-4.6)
[2020-10-24 15:37] LABS: Band 23 % (0-2.0); Lymphocyte 14 % (20-51); Monocyte 3 % (0-9); Neutrophil 60 % (42-75); Neutrophil # 8.3 K/mm3 (1.3-6.0)
[2020-10-24 15:39] LABS: Giant Platelets Trace; Hypochromia 1+; Platelet Estimate Normal (NORMAL)
[2020-10-24 16:58] VITALS: BP 130/67
== END 2020-10-24 16:45 | disposition home or self-care (01) ==
LOC: ER 15:33 → MS 15:33
PROVIDERS: ADMIT Family Medicine; ATTEND Internal Medicine
DX: N40.1 Benign prostatic hyperplasia with lower urinary tract symptoms; Z87.891 Personal history of nicotine dependence; N39.0 Urinary tract infection, site not specified; I12.9 Hypertensive chronic kidney disease with stage 1 through stage 4 chronic kidney disease, or unspecified chronic kidney disease; M51.36 Other intervertebral disc degeneration, lumbar region; I71.4 Abdominal aortic aneurysm, without rupture; N17.9 Acute kidney failure, unspecified; N18.31 Chronic kidney disease, stage 3a; R50.9 Fever, unspecified; R53.1 Weakness; N13.8 Other obstructive and reflux uropathy; E86.0 Dehydration